=== PATIENT | male | born 1945 | race Caucasian/White ===

== ENCOUNTER → 2018-05-25 | Outpatient (CLI) | payer OTHER | END | disposition home or self-care (01) | LOC: C.LABPBG 09:09 | PROVIDERS: ATTEND Neuromusculoskeletal Medicine & OMM | DX: Z80.42 Family history of malignant neoplasm of prostate (principal) ==

== ENCOUNTER 2023-06-17 10:09 | Inpatient (IN) ==
--- NOTE | 2023-06-17 10:38 | Emergency Department Note ---
Impression & Plan Acute renal failure ED Provider Note HISTORY OF PRESENT ILLNESS: Patient is a 78-year-old male presenting for abnormal labs. Patient reports that he was called by his doctor's office to present to the emergency department for further evaluation due to abnormal lab test results. Patient reports that he had laboratory work-up drawn on 06/15/2023 which showed elevated creatinine le laurence. He was referred to the ER for further evaluation. Patient reports no complaints on arrival. He reports that he has been drinking lots of fluids recently because he has been sweating so much. However, he reports he has not been urinating like he normally does over the last few days. He denies any recent medication changes. Reports he has had loose stool for the last month. Denies any recent fevers. Denies any abdominal pain. Denies any recent travel ROS: as above PHYSICAL EXAM: Constitutional: Patient appears in no acute distress. HENT: Head: Normocephalic and atraumatic. Eyes: EOMI, PERRL Mouth/Throat: Mucous membranes moist. Neck: Trachea midline. Neck supple. Cardiovascular: RRR, No murmurs, rubs or gallops. Intact distal pulses. Pulmonary/Chest: No respiratory distress. Breath sounds clear and equal bilaterally. No wheezes or rales. Abdominal: Abdomen soft, no tenderness, rebound or guarding. Musculoskeletal: No edema, tenderness or deformity noted. Skin: Warm and dry. No rash, erythema, pallor or cyanosis Psychiatric: Appropriate mood and affect for situation. Neurological: Alert and keenly responsive. CN II-XII grossly intact, moving all extremities equally and fully. MDM: - Vitals signs stable - History obtained via patient. Patient presents with abnormal labs. Patient was called by his doctor's office to present to the emergency department today due to elevated creatinine on his labs obtained a few days ago. He reports has not been urinating as much is normal. Reports he is being trying to stay well- hydrated and seems to be sweating a lot. Denies any chest pain or shortness of breath. Denies any recent medication changes. Reports he has been having loose stool described as diarrhea for the last month - Chronic conditions affecting care: HTN; HLD; CKD stage 3; DM-2 - Differential diagnoses include, but are not limited to: Dehydration; obs tructive pathology; electrolyte abnormality - Order placed for continuous cardiac monitoring. At this time, monitor showed rate of 63 bpm with normal sinus rhythm, per my interpretation. - External medical records reviewed. Laboratory work-up obtained on 06/15/2023 was reviewed. His creatinine level was noted to be 3.40, when his baseline is around 1.3-1.4. - EKG reviewed by myself showed normal sinus rhythm. Rate bradycardic at 59 bpm. QTc 417. No acute ischemic changes. Patient does seem to have pauses on his EKG. - Laboratory workup interpreted by myself showed normal WBC; slight hyponatremia (Na 135); low bicarb (14); elevated BUN (79); elevated creatinine (Cr 6.47); hypermagnesemia (Mg 2.5); hyperphosphatemia - UA shows 3+ blood and trace ketones. No evidence of infection - Patient given 1L NS. - CT abdomen/pelvis wo contrast ordered to assess for obstruction as cause of acute renal failure. Could not get CT with contrast given patient's ARF. - VBG does show acidosis. - Order placed for I&O monitoring to ensure patient does not become aneuric. Jackson catheter also ordered. - Discussed case with company dancer, Dr. White, as patient is acidotic and has some electrolyte abnormalities. His potassium is okay at this time he is not having EKG changes. Not complaining needs emergent dialysis at this point. Discussed case with company dancer about potential need for bicarb pushes given the patient's laboratory abnormalities. Dr. White agreed with Jackson catheter to assess for repeat postobstructive diuresis. He also recommended 3 amps of bicarb in sterile water and running that at 80 cc/hr. - Discussion was had with [employer] social worker about patient's case and need for admission. - Hospitalist consulted for admission - Patient admitted to [facility] for further evaluation and management. I provided 33 minutes of critical care time to this patient's care outside of billable procedures. ASSESSMENT AND PLAN: Diagnosis: acute renal failure; hypermagnesemia; acidosis Plan: admit Past Med/Surg History Medical History Chronic kidney disease, stage 3 (moderate) Diabetes mellitus Dyslipidemia Hypertension Sensorineural hearing loss (SNHL) of both ears Surgical History H/O hand surgery (2007) Family History Father Prostate cancer Sister Breast cancer Brother Stroke Dyslipidemia Depression Mother Arthritis Denies family history of Ovarian cancer Myocardial infarction Colorectal cancer Social History Smoking Status: Former smoker Tobacco Type: Cigarettes Age Quit Using Tobacco: 43; packs per day: 1; Second Hand Exposure: No; Do You Dip or Chew Tobacco: No; Hx Alcohol Use: Yes Alcohol type: beer Alcohol Intake Frequency: 4 or More x per/Week Alcohol Intake Frequency Comment: AT LEAST 2 BEERS DAILY Hx Substance Use: No Preferred Language: Pakistani Communication Ability: Effective Visual Impairment: No Limitations Hearing Ability: Use of Hearing Aid Insect Control Aide Required: No Beliefs That Will Affect Care: None marital status: Current Living Situation: Spouse current occupational status: retired How many Children do You have: 3 Feels Safe at Home: Yes Childhood Exposure to Second-Hand Smoke: No Diet: regular Diet Comment: regular caffeine: Yes during the past year weight has: remained stable Dental Care, Regularly: No Physical Activity Frequency: Daily Physical Activity Frequency Comment: walking Seatbelt Use: always Sunscreen Use: No Allergies Allergies Allergy/AdvReac Type Severity Reaction Status Date / Time No Known Allergies Allergy Verified 12/21/22 08:07 Home Meds Home Medications Medication Instructions Recorded Confirmed aluminum hydrox-magnesium carb 160 2 tab PO BID 06/17/23 06/17/23 mg-105 mg chewable tablet (Heartburn Antacid) Previous Rx's Medication Instructions Recorded blood sugar diagnostic (Blood #100 ea 12/21/22 Glucose Test strips) blood-glucose meter (Blood Glucose #1 ea 12/21/22 Monitoring kit) metformin 500 mg tablet,extended 1,000 mg PO BID #360 tabs 12/21/22 release 24 hr lancets 31 gauge #100 ea 03/15/23 atorvastatin 10 mg tablet 10 mg PO HS #90 tabs 03/16/23 glimepiride 4 mg tablet 4 mg PO BID #180 tabs 03/16/23 lisinopril 40 mg tablet 40 mg PO DAILY #90 tabs 03/16/23 Results & Data (ED) Vital Signs Vital Signs - 24 hr 06/17/23 10:13 06/17/23 10:46 06/17/23 12:18 Temperature 36.2 C L Temperature Source Temporal Artery Scan Pulse Rate 62 60 Pulse Rate [Apical] 62 Respiratory Rate 16 20 Respiratory Effort / Characteristics Non-Labored Non-Labored Respiratory Depth Normal Normal Blood Pressure 125/61 Blood Pressure [Right Arm] 125/63 Blood Pressure Mean 82 Blood Pressure Mean [Right Arm] 83 Pulse Oximetry 98 97 Oxygen Delivery Method Room Air Room Air Sepsis Recent Fever Within 48 Hours No Sepsis New/Unexplained Change in Mental Status N/A Sepsis Action Taken by Nursing No Action Required 06/17/23 13:36 Temperature Temperature Source Pulse Rate Pulse Rate [Apical] 55 L Respiratory Rate 16 Respiratory Effort / Characteristics Non-Labored Spontaneous Respiratory Depth Normal Blood Pressure Blood Pressure [Right Arm] 133/67 Blood Pressure Mean Blood Pressure Mean [Right Arm] 89 Pulse Oximetry 97 Oxygen Delivery Method Room Air Sepsis Recent Fever Within 48 Hours Sepsis New/Unexplained Change in Mental Status Sepsis Action Taken by Nursing Laboratory Data 06/17/23 10:50 06/17/23 10:50 Lab Results 06/17/23 06/17/23 06/17/23 Range/Units 10:50 10:50 11:48 WBC 7.25 (4.8-10.8) K/ul RBC 3.99 L (4.70-6.10) M/uL Hgb 12.7 L (14.0-18.0) g/dl Hct 37.4 L (42.0-52.0) % MCV 93.7 (80.0-100.0) fL MCH 31.8 (25.0-34.0) pg MCHC 34.0 (32.0-36.0) g/dL RDW Std Deviation 46.7 H (36.4-46.3) fL RDW Coeff of Alen 13.5 (11.5-14.5) % Plt Count 174 (130-400) K/uL MPV 10.4 (9.4-12.4) fL Immature Gran % (Auto) 0.3 % Neut % (Auto) 71.3 % Lymph % (Auto) 18.6 % [place]chran % (Auto) 7.9 % Eos % (Auto) 0.8 % Baso % (Auto) 1.1 % Neut # (Auto) 5.17 (1.40-6.50) K/uL Lymph # (Auto) 1.35 (1.20-3.40) K/uL [place]ran # (Auto) 0.57 (0.11-0.59) K/uL Eos # (Auto) 0.06 (0.00-0.50) K/uL Baso # (Auto) 0.08 (0.00-0.20) K/uL Immature Gran # (Auto) 0.02 (0.01-0.20) K/uL VBG pH (7.36-7.41) VBG pCO2 (38-50) mmHg VBG pO2 mmHg VBG HCO3 mmol/L VBG O2 Saturation % VBG Base Excess mEq/L Sodium 135 L (136-145) mmol/L Potassium 5.1 (3.5-5.1) mmol/L Chloride 110 H (98-107) mmol/L Carbon Dioxide 14 L (21-32) mmol/L Anion Gap 11 (3-11) BUN 79 H (6-23) mg/dl Creatinine 6.47 H* (0.6-1.4) mg/dl Est Cr Clr Drug Dosing 10.4 ml/min Est GFR ( Amer) 8.7 ml/min Est GFR (Non-Af Amer) 7.5 ml/min BUN/Creatinine Ratio 12.2 (10-20) Glucose 232 H (70-99(Fasting)) mg/dl Calcium 9.6 (8.6-10.3) mg/dl Phosphorus 5.7 H (2.5-4.9) mg/dl Magnesium 2.5 H (1.7-2.4) mg/dl Total Bilirubin 1.2 H (0.2-1.0) mg/dl AST 29 (13-39) U/L ALT 23 (7-52) U/L Alkaline Phosphatase 43 (34-104) U/L Troponin I High Sens 15.7 (0-20) pg/ml Total Protein 7.5 (6.0-8.3) gm/dl Albumin 4.4 (3.4-5.0) gm/dl Globulin 3.1 (2.5-4.0) gm/dl Albumin/Globulin Ratio 1.4 (0.9-2) Urine Color Yellow Urine Appearance Cloudy A (Clear) Urine pH 5.0 (4.5-7.5) Ur Specific [place] 1.018 (1.000-1.030) Urine Protein 1+ H (Negative) Urine Glucose (UA) Negative (Negative) Urine Ketones Trace H (Negative) Urine Blood 3+ H (Negative) Urine Nitrite Negative (Negative) Urine Bilirubin Negative (Negative) Urine Urobilinogen Negative (Negative) Ur Leukocyte Esterase Negative (Negative) Urine WBC (Auto) 1-5 (0-5) /hpf Urine RBC (Auto) 0-4 (0-4) /hpf U Hyaline Cast (Auto) 1-5 (0-5) /lpf U Epithel Cells (Auto) 20-30 H (0-5) /lpf Urine Bacteria (Auto) Negative (Negative) Calcium Oxalate Crystal Present A (None Prsent) Urine Yeast Not Reportable 06/17/23 Range/Units 13:14 WBC (4.8-10.8) K/ul RBC (4.70-6.10) M/uL Hgb (14.0-18.0) g/dl Hct (42.0-52.0) % MCV (80.0-100.0) fL MCH (25.0-34.0) pg MCHC (32.0-36.0) g/dL RDW Std Deviation (36.4-46.3) fL RDW Coeff of Alen (11.5-14.5) % Plt Count (130-400) K/uL MPV (9.4-12.4) fL Immature Gran % (Auto) % Neut % (Auto) % Lymph % (Auto) % [place]ran % (Auto) % Eos % (Auto) % Baso % (Auto) % Neut # (Auto) (1.40-6.50) K/uL Lymph # (Auto) (1.20-3.40) K/uL [place]ran # (Auto) (0.11-0.59) K/uL Eos # (Auto) (0.00-0.50) K/uL Baso # (Auto) (0.00-0.20) K/uL Immature Gran # (Auto) (0.01-0.20) K/uL VBG pH 7.26 L (7.36-7.41) VBG pCO2 36 L (38-50) mmHg VBG pO2 41 mmHg VBG HCO3 16 mmol/L VBG O2 Saturation 64.6 % VBG Base Excess -10.0 mEq/L Sodium (136-145) mmol/L Potassium (3.5-5.1) mmol/L Chloride (98-107) mmol/L Carbon Dioxide (21-32) mmol/L Anion Gap (3-11) BUN (6-23) mg/dl Creatinine (0.6-1.4) mg/dl Est Cr Clr Drug Dosing ml/min Est GFR ( Amer) ml/min Est GFR (Non-Af Amer) ml/min BUN/Creatinine Ratio (10-20) Glucose (70-99(Fasting)) mg/dl Calcium (8.6-10.3) mg/dl Phosphorus (2.5-4.9) mg/dl Magnesium (1.7-2.4) mg/dl Total Bilirubin (0.2-1.0) mg/dl AST (13-39) U/L ALT (7-52) U/L Alkaline Phosphatase (34-104) U/L Troponin I High Sens (0-20) pg/ml Total Protein (6.0-8.3) gm/dl Albumin (3.4-5.0) gm/dl Globulin (2.5-4.0) gm/dl Albumin/Globulin Ratio (0.9-2) Urine Color Urine Appearance (Clear) Urine pH (4.5-7.5) Ur Specific [place] (1.000-1.030) Urine Protein (Negative) Urine Glucose (UA) (Negative) Urine Ketones (Negative) Urine Blood (Negative) Urine Nitrite (Negative) Urine Bilirubin (Negative) Urine Urobilinogen (Negative) Ur Leukocyte Esterase (Negative) Urine WBC (Auto) (0-5) /hpf Urine RBC (Auto) (0-4) /hpf U Hyaline Cast (Auto) (0-5) /lpf U Epithel Cells (Auto) (0-5) /lpf Urine Bacteria (Auto) (Negative) Calcium Oxalate Crystal (None Prsent) Urine Yeast Administered Medications Discontinued Medications Sodium Chloride (Nss) 1,000 mls @ 999 mls/hr IV .[id number] ONE Stop: 06/17/23 13:38 Last Admin: 06/17/23 12:43 Dose: 999 mls/hr Documented By: [facility] Imaging Data Radiologist's Impression: Abdomen/Pelvis CT 06/17/23 12:[address] WITHOUT CONTRAST CT DOSE: 1399.33 mGy.cm HISTORY: Acute renal failure acute renal failure TECHNIQUE: Multiaxial CT images of the abdomen and pelvis were performed without contrast. A dose lowering technique was utilized adhering to the principles of ALARA. COMPARISON STUDY: None. FINDINGS: Cardiomegaly with coronary arterial calcifications. Mild bibasilar groundglass densities favor atelectasis. No pneumatosis or pneumoperitoneum. Calcified granulomata throughout the spleen. Unremarkable pancreas, gallbladder and adrenal glands. Hepatic steatosis. Nonspecific bilateral perinephric stranding. No urolith or hydronephrosis. Prostatomegaly. Urine bladder wall thickening with partial distention. Atherosclerosis of the aorta without aneurysm. No lymphadenopathy. No bowel obstruction or bowel wall thickening. There is no ascites or mesenteric inflammation. Normal appendix. Unremarkable soft tissues. No acute fracture. IMPRESSION: 1. No renal calculi or hydronephrosis. 2. Prostatomegaly with findings suggestive of chronic outlet obstruction. 3. No bowel obstruction or bowel wall thickening. 4. Hepatic steatosis. ACT 112: Negative or not required by law. The above report was generated using voice recognition software. It may contain grammatical, syntax or spelling errors. Electronically signed by: Sam Martines M.D. 06/17/2023 1:40 PM Discharge Plan Visit Data Chief Complaint: Abnormal Labs/Diagnostic Testing Stated Complaint: URINARY ISSUES, SENT BY DOCTOR FOR KIDNEY ISSUES ED Provider: Paula Cardoso Discharge Problem: Acute renal failure Forms Stand Alone Forms: [facility] [employer] Prescriptions Prescriptions: No Action (DME) lancets 31 gauge misc See Rx Instructions .Route Qty: 100 1RF Rx Instructions: As directed, check BS daily atorvastatin 10 mg tablet 10 mg PO HS Qty: 90 1RF lisinopril 40 mg tablet 40 mg PO DAILY Qty: 90 1RF glimepiride 4 mg tablet 4 mg PO BID Qty: 180 1RF (DME) Blood Glucose Test Strip See Rx Instructions .ROUTE .MEDSUPPLY Qty: 100 1RF Rx Instructions: As directed. Testing BS daily. Dx: E11.9 (DME) blood-glucose meter [Blood Glucose Monitoring] Kit See Rx Instructions .ROUTE .MEDSUPPLY Qty: 1 0RF Rx Instructions: As directed Testing BS daily. Dx: E11.9 metformin 500 mg tablet extended release 24 hr 1,000 mg PO BID Qty: 360 1RF Heartburn Antacid 160-105 mg Tablet,Chewable 2 tab PO BID Referrals Referrals: Mitzi Hernández DO [Primary Care Provider] -
[2023-06-17 11:14] LABS: Basophils # (auto) 0.08 K/uL (0.00-0.20); Basophils % (auto) 1.1 %; Eosinophils # (auto) 0.06 K/uL (0.00-0.50); Eosinophils % (auto) 0.8 %; Hematocrit (blood only) 37.4 % (42.0-52.0); Hemoglobin 12.7 g/dl (14.0-18.0); Immature Granulocytes # (auto) 0.02 K/uL (0.01-0.20); Immature Granulocytes % (auto) 0.3 %; Lymphocytes # (auto) 1.35 K/uL (1.20-3.40); Lymphocytes % (auto) 18.6 %; Mean Corpuscular Hemoglobin 31.8 pg (25.0-34.0); Mean Corpuscular Volume 93.7 fL (80.0-100.0); Mean Platelet Volume 10.4 fL (9.4-12.4); Monocytes # (auto) 0.57 K/uL (0.11-0.59); Monocytes % (auto) 7.9 %; Neutrophils # (auto) 5.17 K/uL (1.40-6.50); Neutrophils % (auto) 71.3 %; Platelet Count 174 K/uL (130-400); RDW Coefficient of Variation 13.5 % (11.5-14.5); RDW Standard Deviation 46.7 fL (36.4-46.3); Red Blood Count 3.99 M/uL (4.70-6.10); White Blood Count 7.25 K/ul (4.8-10.8)
[2023-06-17 11:41] LABS: Troponin I High Sensitivity 15.7 pg/ml (0-20)
[2023-06-17 12:07] LABS: Appearance Urine Cloudy (Clear); Bacteria Urine Automated Negative (Negative); Bilirubin Urine Negative (Negative); Blood Urine 3+ (Negative); Color Urine Yellow; Epithelial Cell Urine Auto 20-30 /lpf (0-5); Glucose Urine UA Negative (Negative); Ketones Urine Trace (Negative); Leukocyte Esterase Urine Negative (Negative); Nitrite Urine Negative (Negative); Protein Urine 1+ (Negative); RBC Urine Automated 0-4 /hpf (0-4); Specific Gravity Urine 1.018 (1.000-1.030); Urobilinogen Urine Negative (Negative)
[2023-06-17 12:17] LABS: Calcium Oxalate Crystals Urine Present (None Prsent)
[2023-06-17 12:23] LABS: Albumin Level 4.4 gm/dl (3.4-5.0); Bilirubin,Total 1.2 mg/dl (0.2-1.0); Calcium 9.6 mg/dl (8.6-10.3); Magnesium 2.5 mg/dl (1.7-2.4); Potassium 5.1 mmol/L (3.5-5.1)
[2023-06-17 12:36] LABS: Albumin Globulin Ratio 1.4 (0.9-2); BUN Creatinine Ratio 12.2 (10-20); Creatinine Clr Calc Pharmacy 10.4 ml/min; Est GFR (African American) 8.7 ml/min; Est GFR (Non-African American) 7.5 ml/min; Globulin 3.1 gm/dl (2.5-4.0); Total Protein 7.5 gm/dl (6.0-8.3)
[2023-06-17] MEDS ORDERED: SODIUM CHLORIDE 0.9% 1,000 ML IV ONE (12:38)
[2023-06-17 13:18] LABS: Phosphorus 5.7 mg/dl (2.5-4.9)
[2023-06-17 13:22] LABS: HCO3 VBG 16 mmol/L; Oxygen Saturation VBG 64.6 %; PCO2 VBG 36 mmHg (38-50); PO2 VBG 41 mmHg; pH VBG 7.26 (7.36-7.41)
--- NOTE | 2023-06-17 13:42 | CT Scan Report ---
ABDOMEN AND PELVIS CT WITHOUT CONTRAST CT DOSE: 1399.33 mGy.cm HISTORY: Acute renal failure acute renal failure TECHNIQUE: Multiaxial CT images of the abdomen and pelvis were performed without contrast. A dose lo wering technique was utilized adhering to the principles of ALARA. COMPARISON STUDY: None. FINDINGS: Cardiomegaly with coronary arterial calcifications. Mild bibasilar groundglass densities fa vor atelectasis. No pneumatosis or pneumoperitoneum. Calcified granulomata throughout the spleen. Unr emarkable pancreas, gallbladder and adrenal glands. Hepatic steatosis. Nonspecific bilateral perineph [place] stranding. No urolith or hydronephrosis. Prostatomegaly. Urine bladder wall thickening with parti al distention. Atherosclerosis of the aorta without aneurysm. No lymphadenopathy. No bowel obstruction or bowel wall thickening. There is no ascites or mesenteric inflammation. Normal appendix. Unremarkable soft tissues. No acute fracture. IMPRESSION: 1. No renal calculi or hydronephrosis. 2. Prostatomegaly with findings suggestive of chronic outlet obstruction. 3. No bowel obstruction or bowel wall thickening. 4. Hepatic steatosis. ACT 112: Negative or not required by law. The above report was generated using voice recognition software. It may contain grammatical, syntax o r spelling errors. Electronically signed by: Sam Martines M.D. 06/17/2023 1:40 PM
--- NOTE | 2023-06-17 14:09 | History & Physical Report ---
Date of Service June 17, 2023 Assessment & Plan (1) Acute renal failure: Plan: -Admit to the PCU on tele -Currently stable -Cr today is 6.47, baseline is typically 1.3-1.4 -Patient has multiple risk factors including, untreated BPH which is likely causing some urine retention, HTN, DMII, and alcohol abuse -Patient has continued to take his Lisinopril, this has likely contributed to additional damage with his decreased kidney function -Will add on CK level as he has 3+ blood in his urine but no RBC's -Chloride, mag, and phos are mildly elevated, otherwise electrolytes are stable -CT was negative for hydronephrosis and stones, will place poe cath on admission for close I's & O's monitoring -Nephrology consult placed, will follow-up with recommendations, do not think he will need dialysis today -Avoid nephrotoxic agents -Will repeat BMP, mag, phos and VBG at 5 pm -Monitor daily renal function -SQ heparin for DVT PPX -DMII, low potassium diet for now -AM CBC, BMP, mag, Phos, and VBG (2) Metabolic acidosis: Plan: -VBG pH of 7.26 with pCO2 of 36 and pO2 of 41 -AG WNL, chloride elevated at 110 -Likely due to his renal failure and elevated chloride level -Unfortunately he received 1L NSS in the ED prior to admission -Will give 1 amp of sodium bicarb STAT, then continue on 150 meq Sodium bicarb in sterile water at 80 ml/hr -Will repeat labs this evening to ensure he is heading in the right direction (3) Diabetes mellitus: Plan: -Glucose elevated at 232 -Hold metformin and glimepiride for now, did have am doses -Will monitor BSG q6h today until BSG is under control, then can switch to ACHS -CF of 50 q6h until stable -Will hold basal insulin for now with his renal failure as his oral antihyperglycemics will likely take longer to clear, want to avoid hypoglycemia -DMII diet with low potassium for now -Adjust regimen as needed (4) Hypermagnesemia: Plan: -Elevated at 2.5 -Likely due to renal failure -Continue current treatments, will follow repeat labs -Continue to monitor on tele (5) Hyperphosphatemia: Plan: -Elevated at 1.2 -Due to his renal failure -Follow up on repeat labs today and daily (6) Dyslipidemia: Plan: -Hold statin until CK level results (7) Hypertension: Plan: -Stable -Hold lisinopril with ARF -Can monitor off antihypertensives for now Plan The patient was discussed with Dr. Marcos at the time of the admission History of Present Illness Chief Complaint: Abnormal outpatient labs Primary Care Provider: Mitzi Hernández DO Makayla is a 78 year old male with a PMH significant for DMII, HTN, Dyslipidemia, and stage 3 CKD (baseline cr of 1.3-1.4) who presented to the [facility] ED on 06/17 due to abnormal outpatient labs. He was noted to be bradycardic at 55 but otherwise stable. Labs were significant for a VBG pH of 7.26, pCO2 of 36, pO2 of 41, Cr of 6.47, BUN of 79, bicarb of 14, AG WNL, chloride of 110, phos of 5.7 glucose of 232, mag of 2.5, total bili of 1.2, and UA with cloudy appearance, 1+ protein, trace ketones, 3+ blood, and calcium oxalate crystals. CT of the abd/pelvis wo con shows Prostatomegaly with findings suggestive of chronic outlet obstruction but no renal calculi or hydronephrosis. Prior to admission the patient was given 1L NSS prior to admission. At the time of the exam the patient was sitting in bed in no acute distress with his sitting bedside. He states that he had been in his normal state of health when he went for his yearly physical exam on Tuesday. He had routine labs drawn which revealed new renal failure and he was advised to come to the ED. When asked, he states that he recently cut back on his alcohol consumption. He had been drinking approximately 1-2 30 packs of beer weekly. Over the past 2 weeks he has decreased his consumption to 2-3 beers, 3-4 days a week. He did drink every day over the holiday weekend. He denies consistent NSAID use and denies recent dysuria, hematuria, abd pain, and back pain. When asked, he states that he will have to wake up frequently overnight because he has to urinate. He does feel as though he retains urine after urinating. He denies recent fever, chills, chest pain, SOB, nausea, vomiting, diarrhea, melena, LE swelling, and recent trauma. If needed, he would want dialysis to stabilize him during this admission. He is a full code and would want his to make medical decisions for him if he cannot make them himself. Please refer to Dr. Marcos's attestation for any changes to the treatment plan Allergies Allergy/AdvReac Type Severity Reaction Status Date / Time No Known Allergies Allergy Verified 12/21/22 08:07 Home Medications Medication Instructions Recorded Confirmed Type blood sugar diagnostic (Blood #100 ea 12/21/22 12/21/22 Rx Glucose Test strips) blood-glucose meter (Blood Glucose #1 ea 12/21/22 12/21/22 Rx Monitoring kit) metformin 500 mg tablet,extended 1,000 mg PO BID #360 tabs 12/21/22 06/17/23 Rx release 24 hr lancets 31 gauge #100 ea 03/15/23 Rx atorvastatin 10 mg tablet 10 mg PO HS #90 tabs 03/16/23 06/17/23 Rx glimepiride 4 mg tablet 4 mg PO BID #180 tabs 03/16/23 06/17/23 Rx lisinopril 40 mg tablet 40 mg PO DAILY #90 tabs 03/16/23 06/17/23 Rx aluminum hydrox-magnesium carb 160 2 tab PO BID 06/17/23 06/17/23 History mg-105 mg chewable tablet (Heartburn Antacid) Past Med/Surg History Medical History (Updated 06/18/23 @ 12:04 by Reshma Partida MD) Bladder outlet obstruction Chronic kidney disease, stage 3 (moderate) Chronic kidney disease, stage 3a Diabetes mellitus Dyslipidemia Hypertension Sensorineural hearing loss (SNHL) of both ears Surgical History H/O hand surgery (2007) R hand contracture deformity Family History Father Prostate cancer Sister Breast cancer Brother Stroke Dyslipidemia Depression Mother Arthritis Denies family history of Ovarian cancer Myocardial infarction Colorectal cancer Social History Smoking Status: Former smoker Tobacco Type: Cigarettes Age Quit Using Tobacco: 43; packs per day: 1; Second Hand Exposure: No; Do You Dip or Chew Tobacco: No; Hx Alcohol Use: Yes Alcohol type: beer Alcohol Intake Frequency: 4 or More x per/Week Alcohol Intake Frequency Comment: AT LEAST 2 BEERS DAILY Hx Substance Use: No Preferred Language: Moldovan Communication Ability: Effective Visual Impairment: No Limitations Hearing Ability: Use of Hearing Aid Requirements Analyst Required: No Beliefs That Will Affect Care: None marital status: Current Living Situation: Spouse current occupational status: retired How many Children do You have: 3 Feels Safe at Home: Yes Childhood Exposure to Second-Hand Smoke: No Diet: regular Diet Comment: regular caffeine: Yes during the past year weight has: remained stable Dental Care, Regularly: No Physical Activity Frequency: Daily Physical Activity Frequency Comment: walking Seatbelt Use: always Sunscreen Use: No Assistive Devices: Denture - Upper, Denture - Lower and Glasses Physical Exam Physical Exam: Physical Exam: General: In no acute distress, stated age, well-nourished, good hygiene HEENT: Normocephalic, atraumatic, no scleral icterus, pupils around round, symmetrical, and reactive to light, moist mucus membranes, trachea midline, no t hyromegaly Chest/Pulm: No respiratory distress, symmetrical chest expansion, clear breath sounds throughout Cardiac: RRR, systolic murmur noted Abdomen: Negative for ascites and bruising, normoactive bowel sounds, soft, non-tender to palpation throughout Musculoskeletal: Symmetrical and without signs of acute trauma, upper and lower extremities with full ROM, no atrophy, spasticity, or flaccidity Extremities: Radial, dorsalis pedis, and posterior tibial pulses are intact and symmetrical, no edema noted in the BL LE's Skin: Warm, dry, no rashes , lesions, or scars noted Neuro: Alert and oriented to person, place, month, year, and president, no focal defects, no tremors noted Psych: No acute distress, calm and cooperative during the exam Results & Data Results & Data Vital Signs (Past 12 Hours) Vital Signs Temp Pulse Pulse Resp BP BP Pulse Ox 06/17/23 13:36 55 L 16 133/67 97 06/17/23 12:18 60 06/17/23 10:46 62 20 125/63 97 06/17/23 10:13 36.2 C L 62 16 125/61 98 O2 Del Method 06/17/23 13:36 Room Air 06/17/23 12:18 06/17/23 10:46 Room Air 06/17/23 10:13 Room Air Laboratory Results Abnormal lab results 06/17/23 06/17/23 06/17/23 Range/Units 10:50 10:50 11:48 RBC 3.99 L (4.70-6.10) M/uL Hgb 12.7 L (14.0-18.0) g/dl Hct 37.4 L (42.0-52.0) % RDW Std Deviation 46.7 H (36.4-46.3) fL VBG pH (7.36-7.41) VBG pCO2 (38-50) mmHg Sodium 135 L (136-145) mmol/L Chloride 110 H (98-107) mmol/L Carbon Dioxide 14 L (21-32) mmol/L BUN 79 H (6-23) mg/dl Creatinine 6.47 H* (0.6-1.4) mg/dl Glucose 232 H (70-99(Fasting)) mg/dl Phosphorus 5.7 H (2.5-4.9) mg/dl Magnesium 2.5 H (1.7-2.4) mg/dl Total Bilirubin 1.2 H (0.2-1.0) mg/dl Urine Appearance Cloudy A (Clear) Urine Protein 1+ H (Negative) Urine Ketones Trace H (Negative) Urine Blood 3+ H (Negative) U Epithel Cells (Auto) 20-30 H (0-5) /lpf Calcium Oxalate Crystal Present A (None Prsent) 06/17/23 Range/Units 13:14 RBC (4.70-6.10) M/uL Hgb (14.0-18.0) g/dl Hct (42.0-52.0) % RDW Std Deviation (36.4-46.3) fL VBG pH 7.26 L (7.36-7.41) VBG pCO2 36 L (38-50) mmHg Sodium (136-145) mmol/L Chloride (98-107) mmol/L Carbon Dioxide (21-32) mmol/L BUN (6-23) mg/dl Creatinine (0.6-1.4) mg/dl Glucose (70-99(Fasting)) mg/dl Phosphorus (2.5-4.9) mg/dl Magnesium (1.7-2.4) mg/dl Total Bilirubin (0.2-1.0) mg/dl Urine Appearance (Clear) Urine Protein (Negative) Urine Ketones (Negative) Urine Blood (Negative) U Epithel Cells (Auto) (0-5) /lpf Calcium Oxalate Crystal (None Prsent) Diagnostic Findings Abdomen/Pelvis CT 06/17/23 12:[address] WITHOUT CONTRAST CT DOSE: 1399.33 mGy.cm HISTORY: Acute renal failure acute renal failure TECHNIQUE: Multiaxial CT images of the abdomen and pelvis were performed without contrast. A dose lowering technique was utilized adhering to the principles of ALARA. COMPARISON STUDY: None. FINDINGS: Cardiomegaly with coronary arterial calcifications. Mild bibasilar groundglass densities favor atelectasis. No pneumatosis or pneumoperitoneum. Calcified granulomata throughout the spleen. Unremarkable pancreas, gallbladder and adrenal glands. Hepatic steatosis. Nonspecific bilateral perinephric stranding. No urolith or hydronephrosis. Prostatomegaly. Urine bladder wall thickening with partial distention. Atherosclerosis of the aorta without aneurysm. No lymphadenopathy. No bowel obstruction or bowel wall thickening. There is no ascites or mesenteric inflammation. Normal appendix. Unremarkable soft tissues. No acute fracture. IMPRESSION: 1. No renal calculi or hydronephrosis. 2. Prostatomegaly with findings suggestive of chronic outlet obstruction. 3. No bowel obstruction or bowel wall thickening. 4. Hepatic steatosis. ACT 112: Negative or not required by law. The above report was generated using voice recognition software. It may contain grammatical, syntax or spelling errors. Electronically signed by: Sam Martines M.D. 06/17/2023 1:40 PM ECG Additional Comments: Sinus bradycardia with Premature atrial complexes Otherwise normal ECG No previous ECGs available Code Status & VTE Plan Code Status Full code VTE Prophylaxis Plan VTE Prophylaxis will be ordered: Yes Supervising Physician Co-Signing Physician Notes I personally saw and examined the patient. I verified all brand points and agree with Rafael Sánchez PA-C with the following exceptions and/or additions: 78 year old male presents to the ER with due to abnormal outpatient labs showing SARI. He reports 3-4 beers daily but none for the last 48 hours. Mild leg muscle aches. Feels he got dehydrated over the last week. No dysuria. O/E A&Ox3, no acute distress, HS RRR, with systolic murmur loudest LUSB, trace pedal edema, moist mucus membranes, Chest CTAB, Abdo SNT, no CVA tenderness A/P SARI - suspect multifactorial with dehydration, chronic outlet obstruction, diabetes, mild rhabdo, HTN, lisinopril use. Stop lisinopril. No hyperkalemia but non anion gap metabolic acidosis present. Sodium bicarb 50 meq IV now then 150meq in water 80ml/hr following this. Poe catheter inserted for accurate I&Os and to relieve any outlet obstruction. Start tamsulosin. UA + Urine protein/Cr ratio. Systolic ejection murmur - TTE Alcohol use disorder - monitor for withdrawal but none prior and > 48 hours since last alcohol therefore low suspicion this will occur Otherwise as above PG Care Time/CCT Total # of Minutes Spent Total Time Spent with Patient: Total time spent is greater than 50% in coordination of care (as documented) at patient's floor/unit and/or counseling patient: Coding [place] [address] INT INP/OBS CARE 3/75MIN Patient Type Established Medical Decision Making High Complexity Diagnoses Acute renal failure N17.9 Metabolic acidosis E87.20 Diabetes mellitus E11.9 Hypermagnesemia E83.41 Hyperphosphatemia E83.39 Dyslipidemia E78.5 Hypertension I10
--- NOTE | 2023-06-17 14:28 | Nephrology Consultation ---
Date of Consultation June 17, 2023 Assessment & Plan (1) Acute renal failure: * SARI/CKD likely post obstructive related to prostatomegally and QUEVEDO * Agree w/ Jackson catheter insertion, monitor I&O * Start NaHCO3 gtt (150 mEq NaHCO3 in 1L sterile water at 80 cc/hr) to correct metabolic acidosis * Monitor PRP, urine sediment * Volume status and electrolyte balance are acceptable. No acute indication for HD at this time * Hold Lisinopril, Metformin, Glimepiride (2) Chronic kidney disease, stage 3 (moderate): * No prior Nephrology evaluation * Baseline Cr 1.3-1.4 w/ EGFR 45 cc/min. Renal impairment likely due to microvascular disease (3) Hypertension: * BP is currently acceptable * Hold ACEi therapy until renal function recovers History of Present Illness Reason for Consultation: SARI/CKD History of Present Illness Mr. Andrews is a 78 year old white male who is seen at the request of the [facility] Hospitalist Service for evaluation of SARI. Information for the HPI is obtained from direct patient interview and review of the EMR. HPI is summarized as follows: Mr. Andrews has a known h/o AODM, HTN, hypercholesterolemia and sensorineural hearing loss. He has CKD stage G3 (moderate impairment) w/ baseline Cr 1.3-1.4 and EGFR 45 cc/min. His blood pressure has been well controlled w/ Lisinopril therapy. Mr. Andrews recently completed blood work for his PCP. Laboratory results revealed Cr 3.4. He was referred to the [facility] EMD where testing today revealed Cr 6.47. Urinalysis revealed 1+ protein, no blood on a concentrated sample. Noncontrast CT was negative for hydronephrosis or kidney stone but did reveal perinephric stranding and prostatomegally suggestive of chronic QUEVEDO. Mr. Andrews denies the regular use of NSAIDS or herbal supplements. He has had no N/V/D, urinary hesitancy, gross hematuria or foamy urine. He denies any FHx of CKD/ESKD. At the time of my evaluation, balance staff inspector placed Jackson catheter which immediately drained 400 cc clear yellow urine Allergies Allergy/AdvReac Type Severity Reaction Status Date / Time No Known Allergies Allergy Verified 12/21/22 08:07 Home Medications Medication Instructions Recorded Confirmed Type blood sugar diagnostic (Blood #100 ea 12/21/22 12/21/22 Rx Glucose Test strips) blood-glucose meter (Blood Glucose #1 ea 12/21/22 12/21/22 Rx Monitoring kit) metformin 500 mg tablet,extended 1,000 mg PO BID #360 tabs 12/21/22 06/17/23 Rx release 24 hr lancets 31 gauge #100 ea 03/15/23 Rx atorvastatin 10 mg tablet 10 mg PO HS #90 tabs 03/16/23 06/17/23 Rx glimepiride 4 mg tablet 4 mg PO BID #180 tabs 03/16/23 06/17/23 Rx lisinopril 40 mg tablet 40 mg PO DAILY #90 tabs 03/16/23 06/17/23 Rx aluminum hydrox-magnesium carb 160 2 tab PO BID 06/17/23 06/17/23 History mg-105 mg chewable tablet (Heartburn Antacid) Patient History Medical History Chronic kidney disease, stage 3 (moderate) Diabetes mellitus Dyslipidemia Hypertension Sensorineural hearing loss (SNHL) of both ears Surgical History H/O hand surgery (2007) R hand contracture deformity Family History Father Prostate cancer Sister Breast cancer Brother Stroke Dyslipidemia Depression Mother Arthritis Denies family history of Ovarian cancer Myocardial infarction Colorectal cancer Social History Smoking Status: Former smoker Tobacco Type: Cigarettes Age Quit Using Tobacco: 43; packs per day: 1; Second Hand Exposure: No; Do You Dip or Chew Tobacco: No; Hx Alcohol Use: Yes Alcohol type: beer Alcohol Intake Frequency: 4 or More x per/Week Alcohol Intake Frequency Comment: AT LEAST 2 BEERS DAILY Hx Substance Use: No Preferred Language: Wolof Communication Ability: Effective Visual Impairment: No Limitations Hearing Ability: Use of Hearing Aid Air Crew Supervisor Required: No Beliefs That Will Affect Care: None marital status: Current Living Situation: Spouse current occupational status: retired How many Children do You have: 3 Feels Safe at Home: Yes Childhood Exposure to Second-Hand Smoke: No Diet: regular Diet Comment: regular caffeine: Yes during the past year weight has: remained stable Dental Care, Regularly: No Physical Activity Frequency: Daily Physical Activity Frequency Comment: walking Seatbelt Use: always Sunscreen Use: No Review of Systems Constitutional: no fever Eyes: no worsening vision Ear, Nose, Mouth, Throat: no problem reported Respiratory: no cough and no dyspnea Cardiovascular: no chest pain and no syncope Gastrointestinal: no abdominal pain, no nausea, no vomiting and no diarrhea/loose stools Genitourinary: no dysuria, no urinary hesitancy or no hematuria (denies foamy urine) Integumentary: no rash Physical Exam Constitutional: well developed and well nourished; not in distress Eyes: PERRL, conjunctivae normal, anicteric sclerae ENMT: external ear and nose normal, oropharynx normal Neck: trachea midline, no thyromegaly Respiratory: normal respiratory effort, lungs clear to auscultation Cardiovascular: Rate/Rhythm: regular rate and regular rhythm Gastrointestinal (Abdomen): normal bowel sounds, soft, nontender, no hepatosplenomegaly Skin: no rashes, warm and dry Neurologic: Speech / Cognition: normal speech and normal cognition hard of hearing Results & Data Vital Signs (Past 12 Hours) Vital Signs Temp Pulse Pulse Resp BP BP Pulse Ox 06/17/23 13:36 55 L 16 133/67 97 06/17/23 12:18 60 06/17/23 10:46 62 20 125/63 97 06/17/23 10:13 36.2 C L 62 16 125/61 98 O2 Del Method 06/17/23 13:36 Room Air 06/17/23 12:18 06/17/23 10:46 Room Air 06/17/23 10:13 Room Air Laboratory Results Laboratory Results WBC 7.25 K/ul (4.8-10.8) 06/17/23 10:50 RBC 3.99 M/uL (4.70-6.10) L 06/17/23 10:50 Hgb 12.7 g/dl (14.0-18.0) L 06/17/23 10:50 Hct 37.4 % (42.0-52.0) L 06/17/23 10:50 MCV 93.7 fL (80.0-100.0) 06/17/23 10:50 MCH 31.8 pg (25.0-34.0) 06/17/23 10:50 MCHC 34.0 g/dL (32.0-36.0) 06/17/23 10:50 RDW Std Deviation 46.7 fL (36.4-46.3) H 06/17/23 10:50 RDW Coeff of Alen 13.5 % (11.5-14.5) 06/17/23 10:50 Plt Count 174 K/uL (130-400) 06/17/23 10:50 MPV 10.4 fL (9.4-12.4) 06/17/23 10:50 Immature Gran % (Auto) 0.3 % 06/17/23 10:50 Neut % (Auto) 71.3 % 06/17/23 10:50 Lymph % (Auto) 18.6 % 06/17/23 10:50 [place] % (Auto) 7.9 % 06/17/23 10:50 Eos % (Auto) 0.8 % 06/17/23 10:50 Baso % (Auto) 1.1 % 06/17/23 10:50 Neut # (Auto) 5.17 K/uL (1.40-6.50) 06/17/23 10:50 Lymph # (Auto) 1.35 K/uL (1.20-3.40) 06/17/23 10:50 [place] # (Auto) 0.57 K/uL (0.11-0.59) 06/17/23 10:50 Eos # (Auto) 0.06 K/uL (0.00-0.50) 06/17/23 10:50 Baso # (Auto) 0.08 K/uL (0.00-0.20) 06/17/23 10:50 Immature Gran # (Auto) 0.02 K/uL (0.01-0.20) 06/17/23 10:50 VBG pH 7.26 (7.36-7.41) L 06/17/23 13:14 VBG pCO2 36 mmHg (38-50) L 06/17/23 13:14 VBG pO2 41 mmHg 06/17/23 13:14 VBG HCO3 16 mmol/L 06/17/23 13:14 VBG O2 Saturation 64.6 % 06/17/23 13:14 VBG Base Excess -10.0 mEq/L 06/17/23 13:14 Sodium 135 mmol/L (136-145) L 06/17/23 10:50 Potassium 5.1 mmol/L (3.5-5.1) 06/17/23 10:50 Chloride 110 mmol/L (98-107) H 06/17/23 10:50 Carbon Dioxide 14 mmol/L (21-32) L 06/17/23 10:50 Anion Gap 11 (3-11) 06/17/23 10:50 BUN 79 mg/dl (6-23) H 06/17/23 10:50 Creatinine 6.47 mg/dl (0.6-1.4) H* 06/17/23 10:50 Est Cr Clr Drug Dosing 10.4 ml/min 06/17/23 10:50 Est GFR ( Amer) 8.7 ml/min 06/17/23 10:50 Est GFR (Non-Af Amer) 7.5 ml/min 06/17/23 10:50 BUN/Creatinine Ratio 12.2 (10-20) 06/17/23 10:50 Glucose 232 mg/dl (70-99(Fasting)) H 06/17/23 10:50 Calcium 9.6 mg/dl (8.6-10.3) 06/17/23 10:50 Phosphorus 5.7 mg/dl (2.5-4.9) H 06/17/23 10:50 Magnesium 2.5 mg/dl (1.7-2.4) H 06/17/23 10:50 Total Bilirubin 1.2 mg/dl (0.2-1.0) H 06/17/23 10:50 AST 29 U/L (13-39) 06/17/23 10:50 ALT 23 U/L (7-52) 06/17/23 10:50 Alkaline Phosphatase 43 U/L (34-104) 06/17/23 10:50 Troponin I High Sens 15.7 pg/ml (0-20) 06/17/23 10:50 Total Protein 7.5 gm/dl (6.0-8.3) 06/17/23 10:50 Albumin 4.4 gm/dl (3.4-5.0) 06/17/23 10:50 Globulin 3.1 gm/dl (2.5-4.0) 06/17/23 10:50 Albumin/Globulin Ratio 1.4 (0.9-2) 06/17/23 10:50 Urine Color Yellow 06/17/23 11:48 Urine Appearance Cloudy (Clear) A 06/17/23 11:48 Urine pH 5.0 (4.5-7.5) 06/17/23 11:48 Ur Specific [place] 1.018 (1.000-1.030) 06/17/23 11:48 Urine Protein 1+ (Negative) H 06/17/23 11:48 Urine Glucose (UA) Negative (Negative) 06/17/23 11:48 Urine Ketones Trace (Negative) H 06/17/23 11:48 Urine Blood 3+ (Negative) H 06/17/23 11:48 Urine Nitrite Negative (Negative) 06/17/23 11:48 Urine Bilirubin Negative (Negative) 06/17/23 11:48 Urine Urobilinogen Negative (Negative) 06/17/23 11:48 Ur Leukocyte Esterase Negative (Negative) 06/17/23 11:48 Urine WBC (Auto) 1-5 /hpf (0-5) 06/17/23 11:48 Urine RBC (Auto) 0-4 /hpf (0-4) 06/17/23 11:48 U Hyaline Cast (Auto) 1-5 /lpf (0-5) 06/17/23 11:48 U Epithel Cells (Auto) 20-30 /lpf (0-5) H 06/17/23 11:48 Urine Bacteria (Auto) Negative (Negative) 06/17/23 11:48 Calcium Oxalate Crystal Present (None Prsent) A 06/17/23 11:48 Urine Yeast Not Reportable 06/17/23 11:48 Impressions Abdomen/Pelvis CT 06/17/23 12:[address] WITHOUT CONTRAST CT DOSE: 1399.33 mGy.cm HISTORY: Acute renal failure acute renal failure TECHNIQUE: Multiaxial CT images of the abdomen and pelvis were performed without contrast. A dose lowering technique was utilized adhering to the principles of ALARA. COMPARISON STUDY: None. FINDINGS: Cardiomegaly with coronary arterial calcifications. Mild bibasilar groundglass densities favor atelectasis. No pneumatosis or pneumoperitoneum. Calcified granulomata throughout the spleen. Unremarkable pancreas, gallbladder and adrenal glands. Hepatic steatosis. Nonspecific bilateral perinephric stranding. No urolith or hydronephrosis. Prostatomegaly. Urine bladder wall thickening with partial distention. Atherosclerosis of the aorta without aneurysm. No lymphadenopathy. No bowel obstruction or bowel wall thickening. There is no ascites or mesenteric inflammation. Normal appendix. Unremarkable soft tissues. No acute fracture. IMPRESSION: 1. No renal calculi or hydronephrosis. 2. Prostatomegaly with findings suggestive of chronic outlet obstruction. 3. No bowel obstruction or bowel wall thickening. 4. Hepatic steatosis. ACT 112: Negative or not required by law. The above report was generated using voice recognition software. It may contain grammatical, syntax or spelling errors. Electronically signed by: Sam Martines M.D. 06/17/2023 1:40 PM PG Care Time/CCT Total # of Minutes Spent Total Time Spent with Patient: Total time spent is greater than 50% in coordination of care (as documented) at patient's floor/unit and/or counseling patient: Coding Level of Care Code 00977 IN/OBS CONSULT LVL 5,80M Diagnoses Acute renal failure N17.9 Chronic kidney disease, stage 3 (moderate) N18.30 Hypertension I10
[2023-06-17] MEDS ORDERED: SODIUM BICARB 8.4% INJ 50 MEQ/50 ML SYR IV STA (14:38)
[2023-06-17] MEDS ORDERED: CARBOHYDRATES FOR HYPOGLYCEMIA PO PRN (14:54)
[2023-06-17] MEDS ORDERED: DEXTROSE 50% 50 ML SYRINGE IV PRN (14:54)
[2023-06-17] MEDS ORDERED: GLUCAGON FOR INJ 1 MG VIAL SQ PRN (14:54)
[2023-06-17] MEDS ORDERED: GLUCOSE 10 TAB/TUBE PO PRN (14:54)
[2023-06-17] MEDS ORDERED: GLUCOSE 40% GEL 15 GM TUBE PO PRN (14:54)
[2023-06-17] MEDS: SODIUM BICARBONATE 8.4% 150 MEQ in WATER, STERILE 1,000 ML IV SCH (15:30)
[2023-06-17] MEDS: INSULIN ASPART PER UNIT CHARGE SC SCH ×3 (17:00→23:54)
[2023-06-17 17:26] LABS: Base Excess VBG -7.1 mEq/L; HCO3 VBG 19 mmol/L; Oxygen Saturation VBG < 60.0 %; PCO2 VBG 38 mmHg (38-50); PO2 VBG 35 mmHg
[2023-06-17 17:49] LABS: BUN Creatinine Ratio 12.9 (10-20); Calcium 9.1 mg/dl (8.6-10.3); Creatinine Clr Calc Pharmacy 10.8 ml/min; Est GFR (Non-African American) 7.8 ml/min; Magnesium 2.6 mg/dl (1.7-2.4); Phosphorus 5.1 mg/dl (2.5-4.9); Potassium 4.8 mmol/L (3.5-5.1)
--- NOTE | 2023-06-17 18:14 | Electrocardiogram Report ---
Test Reason : Blood Pressure : / mmHG Vent. Rate : 059 BPM Atrial Rate : 059 BPM P-R Int : 204 ms QRS Dur : 086 ms QT Int : 422 ms P-R-T Axes : 038 -04 050 degrees QTc Int : 417 ms Sinus bradycardia with Premature atrial complexes Otherwise normal ECG No previous ECGs available Confirmed by Khalif Obrien ([id number]) on 06/17/2023 6:13:30 PM Referred By: Mitzi Hernández Confirmed By:Luan Obrien
[2023-06-17 19:57] LABS: Total Protein Urine Random 113.2 mg/dl (0-11.9)
[2023-06-17 20:03] LABS: Creatinine Urine Random 193.6 mg/dl; Creatinine Urine Random 193.7 mg/dl; Protein Creatinine Ratio Urine 0.6 (0-0.2)
[2023-06-17 20:37] LABS: BUN Creatinine Ratio 12.7 (10-20); Calcium 8.9 mg/dl (8.6-10.3); Creatinine Clr Calc Pharmacy 10.7 ml/min; Est GFR (Non-African American) 7.8 ml/min; Potassium 4.7 mmol/L (3.5-5.1)
[2023-06-17] MEDS ORDERED: ACETAMINOPHEN 325 MG TAB PO PRN (21:08)
[2023-06-17] MEDS: TAMSULOSIN HCL 0.4 MG CAP PO SCH (22:33)
[2023-06-17] MEDS: ATORVASTATIN 10 MG TAB PO SCH (22:33)
[2023-06-18] MEDS: SODIUM BICARBONATE 8.4% 150 MEQ in WATER, STERILE 1,000 ML IV SCH ×2 (06:12→19:45)
[2023-06-18] MEDS: INSULIN ASPART PER UNIT CHARGE SC SCH ×5 (06:12→19:46)
[2023-06-18 06:47] LABS: Base Excess VBG -4.2 mEq/L; HCO3 VBG 20 mmol/L; PCO2 VBG 34 mmHg (38-50); PO2 VBG 55 mmHg; pH VBG 7.38 (7.36-7.41)
[2023-06-18 06:52] LABS: Basophils # (auto) 0.04 K/uL (0.00-0.20); Basophils % (auto) 0.6 %; Eosinophils # (auto) 0.06 K/uL (0.00-0.50); Eosinophils % (auto) 0.9 %; Hematocrit (blood only) 32.3 % (42.0-52.0); Hemoglobin 11.3 g/dl (14.0-18.0); Immature Granulocytes # (auto) 0.01 K/uL (0.01-0.20); Immature Granulocytes % (auto) 0.2 %; Lymphocytes # (auto) 1.32 K/uL (1.20-3.40); Mean Corpuscular Hemoglobin 31.6 pg (25.0-34.0); Mean Corpuscular Volume 90.2 fL (80.0-100.0); Mean Platelet Volume 10.2 fL (9.4-12.4); Monocytes % (auto) 9.1 %; Neutrophils # (auto) 4.57 K/uL (1.40-6.50); Neutrophils % (auto) 69.2 %; Platelet Count 150 K/uL (130-400); RDW Coefficient of Variation 13.3 % (11.5-14.5); RDW Standard Deviation 44.2 fL (36.4-46.3); Red Blood Count 3.58 M/uL (4.70-6.10)
[2023-06-18] MEDS ORDERED: Nursing to Pharmacy Communication SCH (07:00)
[2023-06-18 07:22] LABS: BUN Creatinine Ratio 14.1 (10-20); Calcium 8.4 mg/dl (8.6-10.3); Creatinine Clr Calc Pharmacy 10.9 ml/min; Est GFR (African American) 9.3 ml/min; Magnesium 2.4 mg/dl (1.7-2.4); Potassium 4.7 mmol/L (3.5-5.1)
[2023-06-18] MEDS ORDERED: LORazepam 1 MG TAB PO PRN (07:44)
--- NOTE | 2023-06-18 07:45 | Hospitalist Progress Note ---
Date of Service June 18, 2023 Assessment & Plan (1) Acute renal failure: Plan: Admit to the PCU on tele 06/18 Multifactorial -- untreated BPH, HTN, DMII/alcohol use Cr 6.47 on admission--> 6.12 at present, CK trending down on repeat Nephrology on consult - appreciate recs/assistance/need for HD CTAP w/ chronic outlet obstruction Poe in place--> To continue per nephrology/urology outpt f/u (patient would like removed, can consider inpatient consult but did discuss would defer removal to prevent retention issues acutely IVF NaHCO3@80cc/hr for metabolic acidosis, pH improved to 7.38/CO2 22 Electrolytes improving possible dc IVF tomorrow if keeping up with oral intake (good intake reported today) CK 670 on admission (UA with blood, no RBCs, holding statin) --> 280 presently Lisinopril/metformin/glimepiride on hold given SARI Urine cx pending (no bacteria on UA) DVT proph: heparin SQ Renal dose meds/avoid nephrotoxins Monitor labs on repeat ECHO pending for new murmur on exam AWSS given hx alcohol use to monitor for any withdrawals (2) Metabolic acidosis: Plan: VBG on admit w/ pH 7.26 with pCO2 36 and pO2 41 No anion gap Likely due to renal failure Nephrology consulted/bicarb IVF Labs improving, continue IVF for now but likely able to discontinue tomorrow per nephrology Appreciate continued assistance from nephrology (3) Diabetes mellitus: Plan: Glu 232 on admission with SARI, holding home metformin/glimepiride Had been holding off basal insulin on admission to prevent hypoglycemia as likely taking longer to clear with SARI BSGs stable, will adjust sliding scale insulin for now CR 50--> 45, CR 1;15 Low K/DM diet Monitor/adjustments as needed (4) Hypermagnesemia: Plan: elevation suspected 2nd to renal failure monitoring on telemetry -- no issues normalized on repeat (5) Hyperphosphatemia: Plan: -Elevated at 1.2 -Due to his renal failure -Follow up on repeat labs today and daily (6) Dyslipidemia: Plan: Ck elevated, improving. continue to hold statin for now. if resolves in AM, consider resuming (7) Hypertension: Plan: Stable, BP 112/68 Holding lisinopril w/ acute renal failure -- would continue to hold until kidney function returns to baseline Monitor BP (8) Alcohol use: Plan: Previous reports of 1-2 30pks of beer weekly, now down to 2-3 beers 3-4x/week but did drink over holiday as well placed on folic acid and thiamine checked folic level, normal B12 low normal 255 -- IM replacement while inpatient, continue PO at discharge Continue daily thiamine for now AWSS risk protocol ordered No evidence for DTs at present Monitoring on telemetry Plan continued inpatient stay, IVF per nephrology (hopefully able to stop tomorrow if keeping with PO intake) Admission and Anticipated Discharge Date Admission Date: June 17, 2023 Supervising Physician Co-Signing Physician Notes The patient was not seen by me. The chart was reviewed. Case discussed with MICHELLE pU. Agree with assessment and plan Subjective Evaluated this morning. Feeling well. Poe with clear yellow urine draining. Eating/drinking without issue. No fever/chills, chest pain, shortness of breath. He is inquiring about getting rid of his poe catheter if possible as it is irritating. Will discuss with nephrology about stopping but will need to continue flomax. Physical Exam Physical Exam: General : WN/WD male sitting up in bed, NAD, reports feeling well but uncomfortable sleeping with catheter in place HEENT: head normocephalic, atraumatic, mmm, trachea midline Resp: CTA, no w/c/r, on room air CV: Sinus rhythm/sinus jett on monitor this morning, +systolic murmur, no pitting edema/calf tenderness GI: +BS, soft/NT, slight suprapubic discomfort reported from poe catheter : poe draining clear yellow urine MSK/Neuro: no focal deficits/slurred speech, answering questions appropriately Psych: alert, oriented x 3, cooperative with exam Results & Data Results & Data Vital Signs (Past 12 Hours) Vital Signs Temp Pulse Pulse Pulse Resp BP BP 06/18/23 07:10 59 L 06/18/23 04:22 36.7 C 56 L 20 96/59 L 06/17/23 23:40 36.7 C 53 L 20 117/67 06/17/23 21:00 36.7 C 62 14 161/79 H 06/17/23 21:00 62 20 06/17/23 20:55 63 24 06/17/23 20:00 23 133/64 06/17/23 21:01 Pulse Ox O2 Del Method 06/18/23 07:10 06/18/23 04:22 95 Room Air 06/17/23 23:40 96 Room Air 06/17/23 21:00 98 Room Air 06/17/23 21:00 06/17/23 20:55 06/17/23 20:00 96 06/17/23 21:01 Room Air Laboratory Results 06/18/23 06/18/23 06/18/23 Range/Units 12:01 11:22 07:55 WBC (4.8-10.8) K/ul RBC (4.70-6.10) M/uL Hgb (14.0-18.0) g/dl Hct (42.0-52.0) % MCV (80.0-100.0) fL MCH (25.0-34.0) pg MCHC (32.0-36.0) g/dL RDW Std Deviation (36.4-46.3) fL RDW Coeff of Alen (11.5-14.5) % Plt Count (130-400) K/uL MPV (9.4-12.4) fL Immature Gran % (Auto) % Neut % (Auto) % Lymph % (Auto) % Nash % (Auto) % Eos % (Auto) % Baso % (Auto) % Neut # (Auto) (1.40-6.50) K/uL Lymph # (Auto) (1.20-3.40) K/uL Nash # (Auto) (0.11-0.59) K/uL Eos # (Auto) (0.00-0.50) K/uL Baso # (Auto) (0.00-0.20) K/uL Immature Gran # (Auto) (0.01-0.20) K/uL VBG pH (7.36-7.41) VBG pCO2 (38-50) mmHg VBG pO2 mmHg VBG HCO3 mmol/L VBG O2 Saturation % VBG Base Excess mEq/L Sodium (136-145) mmol/L Potassium (3.5-5.1) mmol/L Chloride (98-107) mmol/L Carbon Dioxide (21-32) mmol/L Anion Gap (3-11) BUN (6-23) mg/dl Creatinine (0.6-1.4) mg/dl Est Cr Clr Drug Dosing ml/min Est GFR ( Amer) ml/min Est GFR (Non-Af Amer) ml/min BUN/Creatinine Ratio (10-20) Glucose (70-99(Fasting)) mg/dl POC Glucose 193 H 228 H 90 (70-99) mg/dl Calcium (8.6-10.3) mg/dl Phosphorus (2.5-4.9) mg/dl Magnesium (1.7-2.4) mg/dl Total Bilirubin (0.2-1.0) mg/dl AST (13-39) U/L ALT (7-52) U/L Alkaline Phosphatase (34-104) U/L Total Creatine Kinase (30-223) U/L Total Protein (6.0-8.3) gm/dl Albumin (3.4-5.0) gm/dl Globulin (2.5-4.0) gm/dl Albumin/Globulin Ratio (0.9-2) Vitamin B12 (180-914) pg/ml Folate (>5.38) ng/ml Ur Random Creatinine mg/dl U Random Total Protein (0-11.9) mg/dl Ur Random Sodium mmol/L Protein/Creatinin Ratio (0-0.2) 06/18/23 06/18/23 06/18/23 Range/Units 06:31 06:31 06:31 WBC (4.8-10.8) K/ul RBC (4.70-6.10) M/uL Hgb (14.0-18.0) g/dl Hct (42.0-52.0) % MCV (80.0-100.0) fL MCH (25.0-34.0) pg MCHC (32.0-36.0) g/dL RDW Std Deviation (36.4-46.3) fL RDW Coeff of Alen (11.5-14.5) % Plt Count (130-400) K/uL MPV (9.4-12.4) fL Immature Gran % (Auto) % Neut % (Auto) % Lymph % (Auto) % Nash % (Auto) % Eos % (Auto) % Baso % (Auto) % Neut # (Auto) (1.40-6.50) K/uL Lymph # (Auto) (1.20-3.40) K/uL Nash # (Auto) (0.11-0.59) K/uL Eos # (Auto) (0.00-0.50) K/uL Baso # (Auto) (0.00-0.20) K/uL Immature Gran # (Auto) (0.01-0.20) K/uL VBG pH 7.38 (7.36-7.41) VBG pCO2 34 L (38-50) mmHg VBG pO2 55 mmHg VBG HCO3 20 mmol/L VBG O2 Saturation 87.0 % VBG Base Excess -4.2 mEq/L Sodium 138 (136-145) mmol/L Potassium 4.7 (3.5-5.1) mmol/L Chloride 108 H (98-107) mmol/L Carbon Dioxide 22 (21-32) mmol/L Anion Gap 8 (3-11) BUN 86 H (6-23) mg/dl Creatinine 6.12 H* (0.6-1.4) mg/dl Est Cr Clr Drug Dosing 10.9 ml/min Est GFR ( Amer) 9.3 ml/min Est GFR (Non-Af Amer) 8.0 ml/min BUN/Creatinine Ratio 14.1 (10-20) Glucose 79 (70-99(Fasting)) mg/dl POC Glucose (70-99) mg/dl Calcium 8.4 L (8.6-10.3) mg/dl Phosphorus (2.5-4.9) mg/dl Magnesium 2.4 (1.7-2.4) mg/dl Total Bilirubin (0.2-1.0) mg/dl AST (13-39) U/L ALT (7-52) U/L Alkaline Phosphatase (34-104) U/L Total Creatine Kinase 280 H (30-223) U/L Total Protein (6.0-8.3) gm/dl Albumin (3.4-5.0) gm/dl Globulin (2.5-4.0) gm/dl Albumin/Globulin Ratio (0.9-2) Vitamin B12 255 (180-914) pg/ml Folate 14.50 (>5.38) ng/ml Ur Random Creatinine mg/dl U Random Total Protein (0-11.9) mg/dl Ur Random Sodium mmol/L Protein/Creatinin Ratio (0-0.2) 06/18/23 06/18/23 06/17/23 Range/Units 06:31 06:06 23:45 WBC 6.60 (4.8-10.8) K/ul RBC 3.58 L (4.70-6.10) M/uL Hgb 11.3 L (14.0-18.0) g/dl Hct 32.3 L (42.0-52.0) % MCV 90.2 (80.0-100.0) fL MCH 31.6 (25.0-34.0) pg MCHC 35.0 (32.0-36.0) g/dL RDW Std Deviation 44.2 (36.4-46.3) fL RDW Coeff of Alen 13.3 (11.5-14.5) % Plt Count 150 (130-400) K/uL MPV 10.2 (9.4-12.4) fL Immature Gran % (Auto) 0.2 % Neut % (Auto) 69.2 % Lymph % (Auto) 20.0 % Nash % (Auto) 9.1 % Eos % (Auto) 0.9 % Baso % (Auto) 0.6 % Neut # (Auto) 4.57 (1.40-6.50) K/uL Lymph # (Auto) 1.32 (1.20-3.40) K/uL Nash # (Auto) 0.60 H (0.11-0.59) K/uL Eos # (Auto) 0.06 (0.00-0.50) K/uL Baso # (Auto) 0.04 (0.00-0.20) K/uL Immature Gran # (Auto) 0.01 (0.01-0.20) K/uL VBG pH (7.36-7.41) VBG pCO2 (38-50) mmHg VBG pO2 mmHg VBG HCO3 mmol/L VBG O2 Saturation % VBG Base Excess mEq/L Sodium (136-145) mmol/L Potassium (3.5-5.1) mmol/L Chloride (98-107) mmol/L Carbon Dioxide (21-32) mmol/L Anion Gap (3-11) BUN (6-23) mg/dl Creatinine (0.6-1.4) mg/dl Est Cr Clr Drug Dosing ml/min Est GFR ( Amer) ml/min Est GFR (Non-Af Amer) ml/min BUN/Creatinine Ratio (10-20) Glucose (70-99(Fasting)) mg/dl POC Glucose 74 105 H (70-99) mg/dl Calcium (8.6-10.3) mg/dl Phosphorus (2.5-4.9) mg/dl Magnesium (1.7-2.4) mg/dl Total Bilirubin (0.2-1.0) mg/dl AST (13-39) U/L ALT (7-52) U/L Alkaline Phosphatase (34-104) U/L Total Creatine Kinase (30-223) U/L Total Protein (6.0-8.3) gm/dl Albumin (3.4-5.0) gm/dl Globulin (2.5-4.0) gm/dl Albumin/Globulin Ratio (0.9-2) Vitamin B12 (180-914) pg/ml Folate (>5.38) ng/ml Ur Random Creatinine mg/dl U Random Total Protein (0-11.9) mg/dl Ur Random Sodium mmol/L Protein/Creatinin Ratio (0-0.2) 06/17/23 06/17/23 06/17/23 Range/Units 20:03 17:15 17:11 WBC (4.8-10.8) K/ul RBC (4.70-6.10) M/uL Hgb (14.0-18.0) g/dl Hct (42.0-52.0) % MCV (80.0-100.0) fL MCH (25.0-34.0) pg MCHC (32.0-36.0) g/dL RDW Std Deviation (36.4-46.3) fL RDW Coeff of Alen (11.5-14.5) % Plt Count (130-400) K/uL MPV (9.4-12.4) fL Immature Gran % (Auto) % Neut % (Auto) % Lymph % (Auto) % Nash % (Auto) % Eos % (Auto) % Baso % (Auto) % Neut # (Auto) (1.40-6.50) K/uL Lymph # (Auto) (1.20-3.40) K/uL Nash # (Auto) (0.11-0.59) K/uL Eos # (Auto) (0.00-0.50) K/uL Baso # (Auto) (0.00-0.20) K/uL Immature Gran # (Auto) (0.01-0.20) K/uL VBG pH 7.30 L (7.36-7.41) VBG pCO2 38 (38-50) mmHg VBG pO2 35 mmHg VBG HCO3 19 mmol/L VBG O2 Saturation < 60.0 % VBG Base Excess -7.1 mEq/L Sodium 137 (136-145) mmol/L Potassium 4.7 (3.5-5.1) mmol/L Chloride 109 H (98-107) mmol/L Carbon Dioxide 20 L (21-32) mmol/L Anion Gap 8 (3-11) BUN 80 H (6-23) mg/dl Creatinine 6.29 H* (0.6-1.4) mg/dl Est Cr Clr Drug Dosing 10.7 ml/min Est GFR ( Amer) 9.0 ml/min Est GFR (Non-Af Amer) 7.8 ml/min BUN/Creatinine Ratio 12.7 (10-20) Glucose 144 H (70-99(Fasting)) mg/dl POC Glucose 101 H (70-99) mg/dl Calcium 8.9 (8.6-10.3) mg/dl Phosphorus (2.5-4.9) mg/dl Magnesium (1.7-2.4) mg/dl Total Bilirubin (0.2-1.0) mg/dl AST (13-39) U/L ALT (7-52) U/L Alkaline Phosphatase (34-104) U/L Total Creatine Kinase (30-223) U/L Total Protein (6.0-8.3) gm/dl Albumin (3.4-5.0) gm/dl Globulin (2.5-4.0) gm/dl Albumin/Globulin Ratio (0.9-2) Vitamin B12 (180-914) pg/ml Folate (>5.38) ng/ml Ur Random Creatinine mg/dl U Random Total Protein (0-11.9) mg/dl Ur Random Sodium mmol/L Protein/Creatinin Ratio (0-0.2) 06/17/23 06/17/23 06/17/23 Range/Units 17:11 13:14 11:48 WBC (4.8-10.8) K/ul RBC (4.70-6.10) M/uL Hgb (14.0-18.0) g/dl Hct (42.0-52.0) % MCV (80.0-100.0) fL MCH (25.0-34.0) pg MCHC (32.0-36.0) g/dL RDW Std Deviation (36.4-46.3) fL RDW Coeff of Alen (11.5-14.5) % Plt Count (130-400) K/uL MPV (9.4-12.4) fL Immature Gran % (Auto) % Neut % (Auto) % Lymph % (Auto) % Nash % (Auto) % Eos % (Auto) % Baso % (Auto) % Neut # (Auto) (1.40-6.50) K/uL Lymph # (Auto) (1.20-3.40) K/uL Nash # (Auto) (0.11-0.59) K/uL Eos # (Auto) (0.00-0.50) K/uL Baso # (Auto) (0.00-0.20) K/uL Immature Gran # (Auto) (0.01-0.20) K/uL VBG pH 7.26 L (7.36-7.41) VBG pCO2 36 L (38-50) mmHg VBG pO2 41 mmHg VBG HCO3 16 mmol/L VBG O2 Saturation 64.6 % VBG Base Excess -10.0 mEq/L Sodium 139 (136-145) mmol/L Potassium 4.8 (3.5-5.1) mmol/L Chloride 111 H (98-107) mmol/L Carbon Dioxide 19 L (21-32) mmol/L Anion Gap 9 (3-11) BUN 81 H (6-23) mg/dl Creatinine 6.27 H* (0.6-1.4) mg/dl Est Cr Clr Drug Dosing 10.8 ml/min Est GFR ( Amer) 9.0 ml/min Est GFR (Non-Af Amer) 7.8 ml/min BUN/Creatinine Ratio 12.9 (10-20) Glucose 92 (70-99(Fasting)) mg/dl POC Glucose (70-99) mg/dl Calcium 9.1 (8.6-10.3) mg/dl Phosphorus 5.1 H (2.5-4.9) mg/dl Magnesium 2.6 H (1.7-2.4) mg/dl Total Bilirubin (0.2-1.0) mg/dl AST (13-39) U/L ALT (7-52) U/L Alkaline Phosphatase (34-104) U/L Total Creatine Kinase 488 H (30-223) U/L Total Protein (6.0-8.3) gm/dl Albumin (3.4-5.0) gm/dl Globulin (2.5-4.0) gm/dl Albumin/Globulin Ratio (0.9-2) Vitamin B12 (180-914) pg/ml Folate (>5.38) ng/ml Ur Random Creatinine 193.6 mg/dl U Random Total Protein (0-11.9) mg/dl Ur Random Sodium 54 mmol/L Protein/Creatinin Ratio (0-0.2) 06/17/23 06/17/23 Range/Units 11:48 10:50 WBC (4.8-10.8) K/ul RBC (4.70-6.10) M/uL Hgb (14.0-18.0) g/dl Hct (42.0-52.0) % MCV (80.0-100.0) fL MCH (25.0-34.0) pg MCHC (32.0-36.0) g/dL RDW Std Deviation (36.4-46.3) fL RDW Coeff of Alen (11.5-14.5) % Plt Count (130-400) K/uL MPV (9.4-12.4) fL Immature Gran % (Auto) % Neut % (Auto) % Lymph % (Auto) % Nash % (Auto) % Eos % (Auto) % Baso % (Auto) % Neut # (Auto) (1.40-6.50) K/uL Lymph # (Auto) (1.20-3.40) K/uL Nash # (Auto) (0.11-0.59) K/uL Eos # (Auto) (0.00-0.50) K/uL Baso # (Auto) (0.00-0.20) K/uL Immature Gran # (Auto) (0.01-0.20) K/uL VBG pH (7.36-7.41) VBG pCO2 (38-50) mmHg VBG pO2 mmHg VBG HCO3 mmol/L VBG O2 Saturation % VBG Base Excess mEq/L Sodium 135 L (136-145) mmol/L Potassium 5.1 (3.5-5.1) mmol/L Chloride 110 H (98-107) mmol/L Carbon Dioxide 14 L (21-32) mmol/L Anion Gap 11 (3-11) BUN 79 H (6-23) mg/dl Creatinine 6.47 H* (0.6-1.4) mg/dl Est Cr Clr Drug Dosing 10.4 ml/min Est GFR ( Amer) 8.7 ml/min Est GFR (Non-Af Amer) 7.5 ml/min BUN/Creatinine Ratio 12.2 (10-20) Glucose 232 H (70-99(Fasting)) mg/dl POC Glucose (70-99) mg/dl Calcium 9.6 (8.6-10.3) mg/dl Phosphorus 5.7 H (2.5-4.9) mg/dl Magnesium 2.5 H (1.7-2.4) mg/dl Total Bilirubin 1.2 H (0.2-1.0) mg/dl AST 29 (13-39) U/L ALT 23 (7-52) U/L Alkaline Phosphatase 43 (34-104) U/L Total Creatine Kinase 670 H (30-223) U/L Total Protein 7.5 (6.0-8.3) gm/dl Albumin 4.4 (3.4-5.0) gm/dl Globulin 3.1 (2.5-4.0) gm/dl Albumin/Globulin Ratio 1.4 (0.9-2) Vitamin B12 (180-914) pg/ml Folate (>5.38) ng/ml Ur Random Creatinine 193.7 mg/dl U Random Total Protein 113.2 H (0-11.9) mg/dl Ur Random Sodium mmol/L Protein/Creatinin Ratio 0.6 H (0-0.2) Diagnostic Findings Abdomen/Pelvis CT 06/17/23 12:[address] WITHOUT CONTRAST CT DOSE: 1399.33 mGy.cm HISTORY: Acute renal failure acute renal failure TECHNIQUE: Multiaxial CT images of the abdomen and pelvis were performed without contrast. A dose lowering technique was utilized adhering to the principles of ALARA. COMPARISON STUDY: None. FINDINGS: Cardiomegaly with coronary arterial calcifications. Mild bibasilar groundglass densities favor atelectasis. No pneumatosis or pneumoperitoneum. Calcified granulomata throughout the spleen. Unremarkable pancreas, gallbladder and adrenal glands. Hepatic steatosis. Nonspecific bilateral perinephric stranding. No urolith or hydronephrosis. Prostatomegaly. Urine bladder wall thickening with partial distention. Atherosclerosis of the aorta without aneurysm. No lymphadenopathy. No bowel obstruction or bowel wall thickening. There is no ascites or mesenteric inflammation. Normal appendix. Unremarkable soft tissues. No acute fracture. IMPRESSION: 1. No renal calculi or hydronephrosis. 2. Prostatomegaly with findings suggestive of chronic outlet obstruction. 3. No bowel obstruction or bowel wall thickening. 4. Hepatic steatosis. ACT 112: Negative or not required by law. The above report was generated using voice recognition software. It may contain grammatical, syntax or spelling errors. Electronically signed by: Sam Martines M.D. 06/17/2023 1:40 PM PG Care Time/CCT Total # of Minutes Spent Total Time Spent with Patient: Total time spent is greater than 50% in coordination of care (as documented) at patient's floor/unit and/or counseling patient: Coding Level of Care Code 48382 SUB INP/OBS CARE 3/50MIN Diagnoses Acute renal failure N17.9 Metabolic acidosis E87.20 Diabetes mellitus E11.9 Hypermagnesemia E83.41 Hyperphosphatemia E83.39 Dyslipidemia E78.5 Hypertension I10 Alcohol use Z78.9
[2023-06-18 09:02] LABS: Folate (Folic Acid),Ser orPlas 14.5 ng/ml (>5.38)
[2023-06-18] MEDS: FOLIC ACID 1 MG TAB PO SCH (09:02)
[2023-06-18] MEDS: THIAMINE HCL 100 MG TAB PO SCH (09:03)
[2023-06-18] MEDS: CYANOCOBALAMIN 1000 MCG/ML VIAL IM SCH (09:57)
--- NOTE | 2023-06-18 11:05 | XCELERA ---
[id number]}___[id number]
--- NOTE | 2023-06-18 12:07 | Nephrology Progress Note ---
Date of Service June 18, 2023 Assessment & Plan (1) Acute renal failure: (2) Chronic kidney disease, stage 3a: (3) Metabolic acidosis: (4) Hyperphosphatemia: (5) Hypertension: (6) Diabetes mellitus: (7) Bladder outlet obstruction: Plan 78 year old male with past medical history significant for stage IIIa CKD baseline creatinine 1.3-1.4 most likely secondary to microvascular disease with history of hypertension diabetes hypercholesterolemia. Recently he had outpatient labs done by his PCP showing creatinine of 3.4 on 06/15/2023, repeat lab yesterday showed creatinine of 6.5 and he was referred to ER for further evaluation. Urinalysis showed low-grade proteinuria and 3+ blood but no RBCs, no bacteria. CT abdomen pelvis without contrast was negative for hydronephrosis or any other structural abnormality but there was concern for prostatomegaly and chronic bladder outlet obstruction. Had a Jackson catheter placed with 400 cc of urine output. He reported noticing decreased urine output the day before admission. Labs this morning showed slight improvement in creatinine to 6.1, electrolytes improving. Blood pressure well controlled, volume status acceptable, overall otherwise feeling well. --Continue to monitor renal function with daily lab, expect renal function to continue to improve. Recommend to keep the Jackson catheter in and schedule urologic evaluation as an outpatient. --Okay to continue on IV fluid today however if p.o. intake remains adequate, can be discontinued by tomorrow. Will follow Admission and Anticipated Discharge Date Admission Date: June 17, 2023 Subjective Mr. Andrews was seen and evaluated this morning. Overall he feels fine except discomfort with the Jackson catheter. Blood pressure well controlled. Urine output decent. Renal function slightly improved, creatinine down to 6.1 from peak of 6.5 yesterday, bicarb improved to 22 other electrolyte reasonable. Review of Systems Review of Systems: Detailed review of system was otherwise unremarkable except mentioned above. Physical Exam Constitutional: WD/WN, vitals as above no acute distress Eyes: + anicteric sclerae ENMT: Ears: no hearing impairment Neck: normal visual inspection Respiratory: Auscultation: lungs clear to auscultation bilaterally Cardiovascular: Rate/Rhythm: regular rate and regular rhythm Extremities: no edema Skin: no rashes, warm and dry Neurologic: no focal motor deficits Psychiatric: Orientation: alert and oriented x 3 Results & Data Vital Signs (Past 12 Hours) Vital Signs Temp Pulse Pulse Resp BP Pulse Ox O2 Del Method 06/18/23 08:00 36.7 C 89 18 112/68 97 Room Air 06/18/23 07:10 59 L 06/18/23 04:22 36.7 C 56 L 20 96/59 L 95 Room Air PG Care Time/CCT Total # of Minutes Spent Total Time Spent with Patient: Total time spent is greater than 50% in coordination of care (as documented) at patient's floor/unit and/or counseling patient: Coding Level of Care Code 05409 SUB INP/OBS CARE 2/35MIN Diagnoses Acute renal failure N17.9 Chronic kidney disease, stage 3a N18.31 Metabolic acidosis E87.20 Hyperphosphatemia E83.39 Hypertension I10 Diabetes mellitus E11.9 Bladder outlet obstruction N32.0
[2023-06-18] MEDS: TAMSULOSIN HCL 0.4 MG CAP PO SCH (19:45)
[2023-06-18] MEDS: ATORVASTATIN 10 MG TAB PO SCH (19:45)
[2023-06-19 07:34] LABS: Hematocrit (blood only) 32.3 % (42.0-52.0); Hemoglobin 11.3 g/dl (14.0-18.0); Mean Corpuscular Hemoglobin 31.4 pg (25.0-34.0); Mean Corpuscular Volume 89.7 fL (80.0-100.0); Mean Platelet Volume 10.5 fL (9.4-12.4); Platelet Count 140 K/uL (130-400); RDW Coefficient of Variation 13.1 % (11.5-14.5); RDW Standard Deviation 43.3 fL (36.4-46.3); White Blood Count 5.96 K/ul (4.8-10.8)
--- NOTE | 2023-06-19 07:36 | Hospitalist Progress Note ---
Date of Service June 19, 2023 Assessment & Plan (1) Acute renal failure: Plan: Admit to the PCU on tele 06/18 Multifactorial -- untreated BPH, HTN, DMII/alcohol use CTAP w/ chronic outlet obstruction Cr 6.47 on admission, elevated CK (improved on repeat/almost resolved day prior to dc IVF) Poe in place--> To continue per nephrology/urology outpt f/u (patient would like removed, can consider inpatient consult but did discuss would defer removal to prevent retention issues acutely) --> I discussed case w/ Dr Connor in house this weekend and recommended patient KEEP poe for now, voiding trial in office/management of BPH Nephrology on consult Had been on IVF w/ NaHCO3 Electrolytes improved and stable, no further acidosis, pH wnl on repeat Cr improved to 3.84 today D/C IVF per nephro, has been keeping up with PO intake Lisinopril/metformin/glimepride still on hold given SARI (would not resume until normalized) Renal dose meds/avoid nephrotoxins Urine cx NO growth DVT proph: Heparin SQ PT/OT consults placed Patient anxious for dc when able --> discussed if renal function continues to improve tomorrow can d/c with poe and close monitoring of outpatient labs/ur ology follow up for voiding trial. Again, did discuss w/ Dr Connor and rec'd to continue poe but if patient adamant about consideration for removal before dc can consult them tomorrow (2) Metabolic acidosis: Plan: VBG on admit w/ pH 7.26 with pCO2 36 and pO2 41. No anion gap, suspect due to acute renal failure -- nephrology consulted/bicarb IVF as above and resolved on repeat labs Dc IVF today, monitor labs on repeat (3) Diabetes mellitus: Plan: Glu 232 on admission with SARI Holding home metformin/glimepiride Had been holding off basal insulin on admission to prevent hypoglycemia as likely taking longer to clear with SARI BSGs stable, will adjust sliding scale insulin for now CR 50--> 45--> 40, CR 1;15 Low K/DM diet Monitor/adjustments as needed (4) Hypermagnesemia: Plan: elevation suspected 2nd to renal failure monitoring on telemetry -- no issues normalized on repeat (5) Hyperphosphatemia: Plan: repeat wnl (6) Dyslipidemia: Plan: Ck elevated, improving to 280 yesterday on continuous IVF can resume statin tomorrow/at discharge (7) Hypertension: Plan: Stable, BP 116/69 Holding lisinopril w/ acute renal failure -- would continue to hold until kidney function returns to baseline and BP has been WELL CONTROLLED off lisinopril while inpatient Monitor BP (8) Alcohol use: Plan: Previous reports of 1-2 30pks of beer weekly, now down to 2-3 beers 3-4x/week but did drink over holiday as well placed on folic acid and thiamine checked folic level, normal B12 low normal 255 -- IM replacement while inpatient, continue PO at discharge Continue daily thiamine for now AWSS risk protocol ordered No evidence for DTs at present Monitoring on telemetry (9) Murmur: Plan: ECHO obtained given murmur on exam w/ no prior ECHO --> mild aortic stenosis, trivial mild aortic insufficiency, mild mitral regurgitation. EF normal, no wma F/u PCP Plan continued inpatient stay PT/OT consulted repeat labs in AM --> if renal function continued improvement can consider dc w/ close monitoring of labs and urology f/u for voiding trial again, can consider reaching out to urology in AM (notified of need for f/u today with Dr Connor) if patient wanting to trial voiding prior to dc but advised against given significantly enlarged prostate Admission and Anticipated Discharge Date Admission Date: June 17, 2023 Supervising Physician Co-Signing Physician Notes The patient was not seen by me. The chart was reviewed. Case discussed with MICHELLE Up. Agree with assessment and plan Subjective Evaluated this morning, at bedside, went to bathroom, moved his bowels. Poe in place, clear yellow urine. Discussed will await input from nephrology but renal function much improved/electrolytes stable and possible dc IVF today. Discussed to CONTINUE poe and would continue such until outpt f/u Urology for voiding trial. Patient asked about possible dc today -- discussed will see how labs are in AM and if trending down, can possibly consider dc with outpatient labs for continued monitoring and holding his lisinopril/metformin/renal toxic meds. No fever/chills, chest pain, shortness of breath, abdominal pain or nausea reported. Questions/concerns addressed at this time. Physical Exam Physical Exam: General : WN/WD male in bed, in room, NAD, inquiring about cath eter/discharge HEENT: head normocephalic, atraumatic, mmm, trachea midline Resp: CTA, no w/c/r, on room air CV: Sinus rhythm/sinus jett on monitor this morning, +systolic murmur, no pitting edema/calf tenderness GI: +BS, soft/NT, slight suprapubic discomfort reported from poe catheter : poe draining clear yellow urine MSK/Neuro: no focal deficits/slurred speech, answering questions appropriately Psych: alert, oriented x 3, cooperative with exam Results & Data Results & Data Vital Signs (Past 12 Hours) Vital Signs Temp Pulse Resp BP Pulse Ox O2 Del Method 06/19/23 03:33 36.7 C 55 L 14 96 Room Air 06/18/23 22:45 36.5 C 78 18 119/68 97 Room Air Laboratory Results 06/19/23 06/19/23 06/19/23 Range/Units 11:32 07:33 07:11 WBC 5.96 (4.8-10.8) K/ul RBC 3.60 L (4.70-6.10) M/uL Hgb 11.3 L (14.0-18.0) g/dl Hct 32.3 L (42.0-52.0) % MCV 89.7 (80.0-100.0) fL MCH 31.4 (25.0-34.0) pg MCHC 35.0 (32.0-36.0) g/dL RDW Std Deviation 43.3 (36.4-46.3) fL RDW Coeff of Alen 13.1 (11.5-14.5) % Plt Count 140 (130-400) K/uL MPV 10.5 (9.4-12.4) fL Sodium (136-145) mmol/L Potassium (3.5-5.1) mmol/L Chloride (98-107) mmol/L Carbon Dioxide (21-32) mmol/L Anion Gap (3-11) BUN (6-23) mg/dl Creatinine (0.6-1.4) mg/dl Est Cr Clr Drug Dosing ml/min Est GFR ( Amer) ml/min Est GFR (Non-Af Amer) ml/min BUN/Creatinine Ratio (10-20) Glucose (70-99(Fasting)) mg/dl POC Glucose 192 H 109 H (70-99) mg/dl Calcium (8.6-10.3) mg/dl Phosphorus (2.5-4.9) mg/dl Magnesium (1.7-2.4) mg/dl Albumin (3.4-5.0) gm/dl 06/19/23 06/18/23 Range/Units 07:11 16:30 WBC (4.8-10.8) K/ul RBC (4.70-6.10) M/uL Hgb (14.0-18.0) g/dl Hct (42.0-52.0) % MCV (80.0-100.0) fL MCH (25.0-34.0) pg MCHC (32.0-36.0) g/dL RDW Std Deviation (36.4-46.3) fL RDW Coeff of Alen (11.5-14.5) % Plt Count (130-400) K/uL MPV (9.4-12.4) fL Sodium 139 (136-145) mmol/L Potassium 4.6 (3.5-5.1) mmol/L Chloride 104 (98-107) mmol/L Carbon Dioxide 30 (21-32) mmol/L Anion Gap 5 (3-11) BUN 70 H (6-23) mg/dl Creatinine 3.84 H D (0.6-1.4) mg/dl Est Cr Clr Drug Dosing 17.4 ml/min Est GFR ( Amer) 16.4 ml/min Est GFR (Non-Af Amer) 14.1 ml/min BUN/Creatinine Ratio 18.2 (10-20) Glucose 113 H (70-99(Fasting)) mg/dl POC Glucose 179 H (70-99) mg/dl Calcium 8.1 L (8.6-10.3) mg/dl Phosphorus 3.6 D (2.5-4.9) mg/dl Magnesium 2.3 (1.7-2.4) mg/dl Albumin 3.6 (3.4-5.0) gm/dl PG Care Time/CCT Total # of Minutes Spent Total Time Spent with Patient: Total time spent is greater than 50% in coordination of care (as documented) at patient's floor/unit and/or counseling patient: Coding Level of Care Code 26228 SUB INP/OBS CARE 350MIN Diagnoses Acute renal failure N17.9 Metabolic acidosis E87.20 Diabetes mellitus E11.9 Hypermagnesemia E83.41 Hyperphosphatemia E83.39 Dyslipidemia E78.5 Hypertension I10 Alcohol use Z78.9 Murmur R01.1
[2023-06-19] MEDS: FOLIC ACID 1 MG TAB PO SCH (08:07)
[2023-06-19] MEDS: INSULIN ASPART PER UNIT CHARGE SC SCH ×4 (08:07→20:24)
[2023-06-19] MEDS: THIAMINE HCL 100 MG TAB PO SCH (08:07)
[2023-06-19] MEDS: CYANOCOBALAMIN 1000 MCG/ML VIAL IM SCH (08:07)
[2023-06-19 08:15] LABS: Albumin Level 3.6 gm/dl (3.4-5.0); BUN Creatinine Ratio 18.2 (10-20); Calcium 8.1 mg/dl (8.6-10.3); Creatinine Clr Calc Pharmacy 17.4 ml/min; Est GFR (African American) 16.4 ml/min; Est GFR (Non-African American) 14.1 ml/min; Magnesium 2.3 mg/dl (1.7-2.4); Phosphorus 3.6 mg/dl (2.5-4.9); Potassium 4.6 mmol/L (3.5-5.1)
[2023-06-19] MEDS: SODIUM BICARBONATE 8.4% 150 MEQ in WATER, STERILE 1,000 ML IV SCH (09:40)
--- NOTE | 2023-06-19 11:19 | Nephrology Progress Note ---
Date of Service June 19, 2023 Assessment & Plan (1) Acute renal failure: (2) Chronic kidney disease, stage 3a: (3) Metabolic acidosis: (4) Hyperphosphatemia: (5) Hypertension: (6) Diabetes mellitus: (7) Bladder outlet obstruction: Plan 78 year old male with past medical history significant for stage IIIa CKD baseline creatinine 1.3-1.4 most likely secondary to microvascular disease with history of hypertension diabetes hypercholesterolemia. Recently he had outpatient labs done by his PCP showing creatinine of 3.4 on 06/15/2023, repeat lab yesterday showed creatinine of 6.5 and he was referred to ER for further evaluation. Urinalysis showed low-grade proteinuria and 3+ blood but no RBCs, no bacteria. CT abdomen pelvis without contrast was negative for hydronephrosis or any other structural abnormality but there was concern for prostatomegaly and chronic bladder outlet obstruction. Had a Jackson catheter placed with 400 cc of urine output. He reported noticing decreased urine output the day before admission. Labs this morning showed slight improvement in creatinine to 6.1, electrolytes improving. Blood pressure well controlled, volume status acceptable, overall otherwise feeling well. --Continue to monitor renal function with daily lab, expect renal function to continue to improve. Recommend to keep the Jackson catheter in and schedule urologic evaluation as an outpatient. -- Discontinue IV fluid, encourage p.o. intake -- Okay to be discharged with close outpatient lab monitoring if patient is comfortable to go home with Jackson catheter. Other option would be to remove the catheter and give voiding trial before discharge. If patient gets discharged home without Jackson catheter he should have outpatient urology evaluation soon with close outpatient lab monitoring Will follow Admission and Anticipated Discharge Date Admission Date: June 17, 2023 Subjective Mr. Andrews was seen and evaluated this morning with his at bedside. Overall he feels fine except discomfort with the Jackson catheter. Blood pressure well controlled. Urine output decent. Renal function continues to improve rapidly creatinine down to 3.8 from peak of 6.1 yesterday, electrolyte reasonable. Review of Systems Review of Systems: Detailed review of system was otherwise unremarkable except mentioned above. Physical Exam Constitutional: WD/WN, vitals as above no acute distress Eyes: + anicteric sclerae ENMT: Ears: no hearing impairment Neck: normal visual inspection Respiratory: Auscultation: lungs clear to auscultation bilaterally Cardiovascular: Rate/Rhythm: regular rate and regular rhythm Extremities: no edema Skin: no rashes, warm and dry Neurologic: no focal motor deficits Psychiatric: Orientation: alert and oriented x 3 Results & Data Vital Signs (Past 12 Hours) Vital Signs Temp Pulse Pulse Resp BP Pulse Ox O2 Del Method 06/19/23 08:00 37.2 C 60 14 129/58 L 97 Room Air 06/19/23 07:30 46 L 06/19/23 03:33 36.7 C 55 L 14 96 Room Air PG Care Time/CCT Total # of Minutes Spent Total Time Spent with Patient: Total time spent is greater than 50% in coordination of care (as documented) at patient's floor/unit and/or counseling patient: Coding Level of Care Code 99902 SUB INP/OBS CARE 2/35MIN Diagnoses Acute renal failure N17.9 Chronic kidney disease, stage 3a N18.31 Metabolic acidosis E87.20 Hyperphosphatemia E83.39 Hypertension I10 Diabetes mellitus E11.9 Bladder outlet obstruction N32.0
[2023-06-19] MEDS: ATORVASTATIN 10 MG TAB PO SCH (20:25)
[2023-06-19] MEDS: TAMSULOSIN HCL 0.4 MG CAP PO SCH (20:25)
[2023-06-20 06:52] LABS: Hematocrit (blood only) 34.1 % (42.0-52.0); Hemoglobin 11.9 g/dl (14.0-18.0); Mean Corpuscular Hemoglobin 31.4 pg (25.0-34.0); Mean Corpuscular Hgb Conc 34.9 g/dL (32.0-36.0); Mean Platelet Volume 10.9 fL (9.4-12.4); Platelet Count 145 K/uL (130-400); RDW Standard Deviation 42.9 fL (36.4-46.3); Red Blood Count 3.79 M/uL (4.70-6.10)
[2023-06-20 07:16] LABS: Albumin Level 3.9 gm/dl (3.4-5.0); BUN Creatinine Ratio 19.4 (10-20); Bilirubin Direct 0.3 mg/dl (0-0.2); Bilirubin,Total 1.3 mg/dl (0.2-1.0); Calcium 8.4 mg/dl (8.6-10.3); Creatinine Clr Calc Pharmacy 25.9 ml/min; Est GFR (African American) 26.4 ml/min; Est GFR (Non-African American) 22.8 ml/min; Magnesium 2.2 mg/dl (1.7-2.4); Phosphorus 2.9 mg/dl (2.5-4.9); Potassium 4.4 mmol/L (3.5-5.1); Total Protein 6.8 gm/dl (6.0-8.3)
--- NOTE | 2023-06-20 08:10 | Hospitalist Progress Note ---
Date of Service June 20, 2023 Assessment & Plan (1) Acute renal failure: Plan: Admit to the PCU on tele Multifactorial -- untreated BPH, HTN, DMII/alcohol use CTAP w/ chronic outlet obstruction Cr 6.47 on admission, elevated CK (improved on repeat/almost resolved day prior to dc IVF) Poe in place--> To continue per nephrology/urology outpt f/u (patient would like removed, can consider inpatient consult but did discuss would defer removal to prevent retention issues acutely) --> I discussed case w/ Dr Connor in house this weekend and recommended patient KEEP poe for now, voiding trial in office/management of BPH Nephrology on consult Had been on IVF w/ NaHCO3 Electrolytes improved and stable, no further acidosis, pH wnl on repeat Cr improved to 3.84, discontinued IVF Lisinopril/metformin/glimepride still on hold given SARI (would not resume until normalized) Cr further improved to 2.58 -- given trending down will discuss w/ patient/nephro about possible discharge today with close follow up and Urology for voiding trial Renal dose meds/avoid nephrotoxins Urine cx NO growth DVT proph: Heparin SQ PT/OT consults placed (2) Metabolic acidosis: Plan: VBG on admit w/ pH 7.26 with pCO2 36 and pO2 41. No anion gap, suspect due to acute renal failure -- nephrology consulted/bicarb IVF as above and resolved on repeat labs Dc IVF today, monitor labs on repeat (3) Diabetes mellitus: Plan: Glu 232 on admission with SARI Holding home metformin/glimepiride Had been holding off basal insulin on admission to prevent hypoglycemia as likely taking longer to clear with SARI BSGs stable, will adjust sliding scale insulin for now CR 50--> 45--> 40, CR 1;15 Low K/DM diet Monitor/adjustments as needed (4) Hypermagnesemia: Plan: elevation suspected 2nd to renal failure monitoring on telemetry -- no issues normalized on repeat (5) Hyperphosphatemia: Plan: repeat wnl (6) Dyslipidemia: Plan: Ck elevated, improving to 280 yesterday on continuous IVF can resume statin tomorrow/at discharge (7) Hypertension: Plan: Stable, BP 116/69 Holding lisinopril w/ acute renal failure -- would continue to hold until kidney function returns to baseline and BP has been WELL CONTROLLED off lisinopril while inpatient Monitor BP (8) Alcohol use: Plan: Previous reports of 1-2 30pks of beer weekly, now down to 2-3 beers 3-4x/week but did drink over holiday as well placed on folic acid and thiamine checked folic level, normal B12 low normal 255 -- IM replacement while inpatient, continue PO at discharge Continue daily thiamine for now AWSS risk protocol ordered No evidence for DTs at present Monitoring on telemetry (9) Murmur: Plan: ECHO obtained given murmur on exam w/ no prior ECHO --> mild aortic stenosis, trivial mild aortic insufficiency, mild mitral regurgitation. EF normal, no wma F/u PCP Plan continued inpatient stay PT/OT consulted repeat labs in AM --> if renal function continued improvement can consider dc w/ close monitoring of labs and urology f/u for voiding trial again, can consider reaching out to urology in AM (notified of need for f/u today with Dr Connor) if patient wanting to trial voiding prior to dc but advised against given significantly enlarged prostate Admission and Anticipated Discharge Date Admission Date: June 17, 2023 Results & Data Results & Data Vital Signs (Past 12 Hours) Vital Signs Temp Pulse Pulse Resp BP Pulse Ox O2 Del Method 06/20/23 07:39 36.9 C 59 L 18 128/77 95 Room Air 06/20/23 03:13 124/66 06/20/23 02:50 36.8 C 60 16 83/47 L 93 Room Air 06/19/23 23:41 53 L 06/19/23 23:00 36.9 C 60 16 106/62 Room Air Laboratory Results 06/20/23 06/20/23 06/20/23 Range/Units 07:36 05:31 05:31 WBC 5.90 (4.8-10.8) K/ul RBC 3.79 L (4.70-6.10) M/uL Hgb 11.9 L (14.0-18.0) g/dl Hct 34.1 L (42.0-52.0) % MCV 90.0 (80.0-100.0) fL MCH 31.4 (25.0-34.0) pg MCHC 34.9 (32.0-36.0) g/dL RDW Std Deviation 42.9 (36.4-46.3) fL RDW Coeff of Alen 13.0 (11.5-14.5) % Plt Count 145 (130-400) K/uL MPV 10.9 (9.4-12.4) fL Sodium 138 (136-145) mmol/L Potassium 4.4 (3.5-5.1) mmol/L Chloride 105 (98-107) mmol/L Carbon Dioxide 28 (21-32) mmol/L Anion Gap 5 (3-11) BUN 50 H D (6-23) mg/dl Creatinine 2.58 H D (0.6-1.4) mg/dl Est Cr Clr Drug Dosing 25.9 ml/min Est GFR ( Amer) 26.4 ml/min Est GFR (Non-Af Amer) 22.8 ml/min BUN/Creatinine Ratio 19.4 (10-20) Glucose 137 H (70-99(Fasting)) mg/dl POC Glucose 151 H (70-99) mg/dl Calcium 8.4 L (8.6-10.3) mg/dl Phosphorus 2.9 (2.5-4.9) mg/dl Magnesium 2.2 (1.7-2.4) mg/dl Total Bilirubin 1.3 H (0.2-1.0) mg/dl Direct Bilirubin 0.3 H (0-0.2) mg/dl AST 14 (13-39) U/L ALT 18 (7-52) U/L Alkaline Phosphatase 40 (34-104) U/L Total Creatine Kinase 92 (30-223) U/L Total Protein 6.8 (6.0-8.3) gm/dl Albumin 3.9 (3.4-5.0) gm/dl 06/19/23 06/19/23 06/19/23 Range/Units 20:24 16:41 11:32 WBC (4.8-10.8) K/ul RBC (4.70-6.10) M/uL Hgb (14.0-18.0) g/dl Hct (42.0-52.0) % MCV (80.0-100.0) fL MCH (25.0-34.0) pg MCHC (32.0-36.0) g/dL RDW Std Deviation (36.4-46.3) fL RDW Coeff of Alen (11.5-14.5) % Plt Count (130-400) K/uL MPV (9.4-12.4) fL Sodium (136-145) mmol/L Potassium (3.5-5.1) mmol/L Chloride (98-107) mmol/L Carbon Dioxide (21-32) mmol/L Anion Gap (3-11) BUN (6-23) mg/dl Creatinine (0.6-1.4) mg/dl Est Cr Clr Drug Dosing ml/min Est GFR ( Amer) ml/min Est GFR (Non-Af Amer) ml/min BUN/Creatinine Ratio (10-20) Glucose (70-99(Fasting)) mg/dl POC Glucose 191 H 174 H 192 H (70-99) mg/dl Calcium (8.6-10.3) mg/dl Phosphorus (2.5-4.9) mg/dl Magnesium (1.7-2.4) mg/dl Total Bilirubin (0.2-1.0) mg/dl Direct Bilirubin (0-0.2) mg/dl AST (13-39) U/L ALT (7-52) U/L Alkaline Phosphatase (34-104) U/L Total Creatine Kinase (30-223) U/L Total Protein (6.0-8.3) gm/dl Albumin (3.4-5.0) gm/dl 06/19/23 Range/Units 07:11 WBC (4.8-10.8) K/ul RBC (4.70-6.10) M/uL Hgb (14.0-18.0) g/dl Hct (42.0-52.0) % MCV (80.0-100.0) fL MCH (25.0-34.0) pg MCHC (32.0-36.0) g/dL RDW Std Deviation (36.4-46.3) fL RDW Coeff of Alen (11.5-14.5) % Plt Count (130-400) K/uL MPV (9.4-12.4) fL Sodium 139 (136-145) mmol/L Potassium 4.6 (3.5-5.1) mmol/L Chloride 104 (98-107) mmol/L Carbon Dioxide 30 (21-32) mmol/L Anion Gap 5 (3-11) BUN 70 H (6-23) mg/dl Creatinine 3.84 H D (0.6-1.4) mg/dl Est Cr Clr Drug Dosing 17.4 ml/min Est GFR ( Amer) 16.4 ml/min Est GFR (Non-Af Amer) 14.1 ml/min BUN/Creatinine Ratio 18.2 (10-20) Glucose 113 H (70-99(Fasting)) mg/dl POC Glucose (70-99) mg/dl Calcium 8.1 L (8.6-10.3) mg/dl Phosphorus 3.6 D (2.5-4.9) mg/dl Magnesium 2.3 (1.7-2.4) mg/dl Total Bilirubin (0.2-1.0) mg/dl Direct Bilirubin (0-0.2) mg/dl AST (13-39) U/L ALT (7-52) U/L Alkaline Phosphatase (34-104) U/L Total Creatine Kinase (30-223) U/L Total Protein (6.0-8.3) gm/dl Albumin 3.6 (3.4-5.0) gm/dl PG Care Time/CCT Total # of Minutes Spent Total Time Spent with Patient: Total time spent is greater than 50% in coordination of care (as documented) at patient's floor/unit and/or counseling patient: Coding Diagnoses Acute renal failure N17.9 Metabolic acidosis E87.20 Diabetes mellitus E11.9 Hypermagnesemia E83.41 Hyperphosphatemia E83.39 Dyslipidemia E78.5 Hypertension I10 Alcohol use Z78.9 Murmur R01.1
[2023-06-20] MEDS: THIAMINE HCL 100 MG TAB PO SCH (08:14)
[2023-06-20] MEDS: FOLIC ACID 1 MG TAB PO SCH (08:14)
[2023-06-20] MEDS: CYANOCOBALAMIN 1000 MCG/ML VIAL IM SCH (08:14)
[2023-06-20] MEDS: INSULIN ASPART PER UNIT CHARGE SC SCH (08:26)
--- NOTE | 2023-06-20 09:45 | Discharge Summary ---
Date of Service June 20, 2023 Admission HPI Per Admitting Provider Makayla is a 78 year old male with a PMH significant for DMII, HTN, Dyslipidemia, and stage 3 CKD (baseline cr of 1.3-1.4) who presented to the [facility] ED on 06/17 due to abnormal outpatient labs. He was noted to be bradycardic at 55 but otherwise stable. Labs were significant for a VBG pH of 7.26, pCO2 of 36, pO2 of 41, Cr of 6.47, BUN of 79, bicarb of 14, AG WNL, chloride of 110, phos of 5.7 glucose of 232, mag of 2.5, total bili of 1.2, and UA with cloudy appearance, 1+ protein, trace ketones, 3+ blood, and calcium oxalate crystals. CT of the abd/pelvis wo con shows Prostatomegaly with findings suggestive of chronic outlet obstruction but no renal calculi or hydronephrosis. Prior to admission the patient was given 1L NSS prior to admission. At the time of the exam the patient was sitting in bed in no acute distress with his sitting bedside. He states that he had been in his normal state of health when he went for his yearly physical exam on Tuesday. He had routine labs drawn which revealed new renal failure and he was advised to come to the ED. When asked, he states that he recently cut back on his alcohol consumption. He had been drinking approximately 1-2 30 packs of beer weekly. Over the past 2 weeks he has decreased his consumption to 2-3 beers, 3-4 days a week. He did drink every day over the holiday weekend. He denies consistent NSAID use and denies recent dysuria, hematuria, abd pain, and back pain. When asked, he states that he will have to wake up frequently overnight because he has to urinate. He does feel as though he retains urine after urinating. He denies recent fever, chills, chest pain, SOB, nausea, vomiting, diarrhea, melena, LE swelling, and recent trauma. If needed, he would want dialysis to stabilize him during this admission. He is a full code and would want his to make medical decisions for him if he cannot make them himself. Please refer to Dr. Marcos's attestation for any changes to the treatment plan Admission Exam Per Admitting Provider Physical Exam: General:In no acute distress, stated age, well-nourished, good hygiene HEENT:Normocephalic, atraumatic, no scleral icterus, pupils around round, symmetrical, and reactive to light, moist mucus membranes, trachea midline, no thyromegaly Chest/Pulm:No respiratory distress, symmetrical chest expansion, clear breath sounds throughout Cardiac:RRR, systolic murmur noted Abdomen:Negative for ascites and bruising, normoactive bowel sounds, soft, non-tender to palpation throughout Musculoskeletal:Symmetrical and without signs of acute trauma, upper and lower extremities with full ROM, no atrophy, spasticity, or flaccidity Extremities:Radial, dorsalis pedis, and posterior tibial pulses are intact and symmetrical, no edema noted in the BL LE's Skin:Warm, dry, no rashes , lesions, or scars noted Neuro:Alert and oriented to person, place, month, year, and president, no focal defects, no tremors noted Psych:No acute distress, calm and cooperative during the exam Principal Diagnosis Acute Renal Failure, Outlet Obstruction, BPH Discharge Exam General : WN/WD male in bed, in room, NAD HEENT: head normocephalic, atraumatic, mmm, trachea midline Resp: CTA, no w/c/r, on room air CV: Sinus rhythm/sinus jett on monitor this morning, +systolic murmur, no pitting edema/calf tenderness GI: +BS, soft/NT : poe draining clear yellow urine MSK/Neuro: no focal deficits/slurred speech, answering questions appropriately Psych: alert, oriented x 3, cooperative with exam Discharge Data Allergies Allergy/AdvReac Type Severity Reaction Status Date / Time No Known Allergies Allergy Verified 12/21/22 08:07 Consultations 06/17/23 14:02 ED Decision to Admit Stat 06/17/23 14:10 Consult Nephrology Routine Ordered Studies Abdomen/Pelvis CT 06/17/23 12:[address] WITHOUT CONTRAST CT DOSE: 1399.33 mGy.cm HISTORY: Acute renal failure acute renal failure TECHNIQUE: Multiaxial CT images of the abdomen and pelvis were performed without contrast. A dose lowering technique was utilized adhering to the principles of ALARA. COMPARISON STUDY: None. FINDINGS: Cardiomegaly with coronary arterial calcifications. Mild bibasilar groundglass densities favor atelectasis. No pneumatosis or pneumoperitoneum. Calcified granulomata throughout the spleen. Unremarkable pancreas, gallbladder and adrenal glands. Hepatic steatosis. Nonspecific bilateral perinephric stranding. No urolith or hydronephrosis. Prostatomegaly. Urine bladder wall thickening with partial distention. Atherosclerosis of the aorta without aneurysm. No lymphadenopathy. No bowel obstruction or bowel wall thickening. There is no ascites or mesenteric inflammation. Normal appendix. Unremarkable soft tissues. No acute fracture. IMPRESSION: 1. No renal calculi or hydronephrosis. 2. Prostatomegaly with findings suggestive of chronic outlet obstruction. 3. No bowel obstruction or bowel wall thickening. 4. Hepatic steatosis. ACT 112: Negative or not required by law. The above report was generated using voice recognition software. It may contain grammatical, syntax or spelling errors. Electronically signed by: Sam Martines M.D. 06/17/2023 1:40 PM Hospital Course (1) Acute renal failure: Admit to the PCU on tele Multifactorial -- untreated BPH, HTN, DMII/alcohol use CTAP w/ Prostatomegaly with findings suggestive of chronic outlet obstruction Cr 6.47 on admission with mildly elevated CK. Urine cx no growth Nephrology consulted Poe placed to relieve obstruction, UOP clear yellow urine in poe bag --> I discussed case w/ Dr Connor in house this weekend and recommended patient KEEP poe for now, voiding trial in office/management of BPH IVF w/ NaHCO for electrolyte derangements/acidosis, pH normalized on repeat and keeping up with PO intake and continued improvement in creatinine and IVF discontinued 06/19 and Cr down to 2.58 prior to discharge Patient had been feeling well past 2 days and wanting to go home but wanted to ensure moving in the right direction. Discussed w/ nephrology prior to discharge and patient to continue poe catheter as well as hold his home lisinopril, metformin, glimeperide at discharge to prevent worsened SARI/hypoglycemia until instructed to resume by PCP/nephro. BPs well controlled off such while inpatient and BSgs reasonable mundo given he declined any insulin while inpatient Close f/u with urology for voiding trial at discharge Repeat labs provided to be drawn this upcoming Tuesday and Tuesday, CC'd to Dr Partida. Further f/u /management per repeat labs. (2) Metabolic acidosis: VBG on admit w/ pH 7.26 with pCO2 36 and pO2 41. No anion gap, suspect due to acute renal failure -- nephrology consulted/bicarb IVF as above and resolved on repeat labs and IVF discontinued and labs remained stable/continued improvement in renal function (3) Diabetes mellitus: Held home medications on admission, had been refusing insulin and BSGs actually reasonable without Decision to continue to hold home metformin given renal function as well as glimeperide to prevent hypoglycemia and can resume once renal function normalizes (4) Hypermagnesemia: elevation suspected 2nd to renal failure, normalized on repeat with IVF/poe as above to relieve obstruction/BPH (5) Hyperphosphatemia: repeat wnl (6) Dyslipidemia: Ck elevated, IVF provided and statin held. CK normalized, statin resumed (7) Hypertension: Stable while inpatient off lisinopril to continued to hold such at discharge given elevated renal function --> timing to resume TBD based on repeat labs/follow up (8) Alcohol use: Previous reports of 1-2 30pks of beer weekly, now down to 2-3 beers 3-4x/week but did drink over holiday as well placed on folic acid and thiamine and checked folic level which was normal. B12 was low normal and IM provided while inpatient --> continued PO at discharge encouraged continued cutting back continued empiric thiamine while inpatient AWSS protocol ordered --> NO EVIDENCE FOR DTS DURING INPATIENT STAY (9) Murmur: ECHO obtained given murmur on exam w/ no prior ECHO --> mild aortic stenosis, trivial mild aortic insufficiency, mild mitral regurgitation. EF normal, no wma F/u PCP Plan discharged home with continued poe and to have urology f/u for voiding trial. CM arranged for home health per patient/ request given poe at dc. RN to provide instructions for care as well prior to dc Flomax continued at discharge lisinopril/metformin/glimepiride held as above, repeat labs for Tuesday and Tuesday provided and once renal function back to baseline primary care/nephrology can determine timing to resume these medications Total Time Total Time Spent Total Time Spent (In Minutes): 50 Discharge Plan Discharge Items Patient Disposition: Home - Self-Care Reason For Visit: RENAL FAILURE, HYPER-MAG, HYPER-PHOS Discharge Diagnosis: Acute Renal Failure Goals: You have been hospitalized for an acute medical problem. During your stay at [facility], we have made an effort to correct the problem that brought you to the hospital while keeping you as comfortable as possible. Medications were used to bring your condition under control and your discharge instructions will include directions for any medications you should take after leaving the hospital. Please make sure you see your Primary Care Provider as part of your follow up plan. Activity: As commented below Non-emergency contact: Primary Care Provider, [facility] and Urologist Call non-emergency contact if: you have any medication questions, your symptoms worsen, your pain is not controlled and you have a fever Follow-up/Referrals: Khalif Connor MD [Physician] - 06/28/23 11:00 am (Follow up scheduled 06/28/23 @ 11am) Mitzi Hernández DO [Primary Care Provider] - 07/04/23 9:20 am (Follow up schedued 07/04/23 @ 9:20) Reshma Partida MD [Physician] - 06/24/23 3:20 pm (Follow up scheduled on 06/24/23 @ 3:20) Diet: Carb Consistent or DM2 and Heart Healthy Ambulatory Orders: Basic Metabolic Panel (Routine) Timeframe: 20230627 Location: Determined by Patient Ordered By: Penny Adrian Basic Metabolic Panel (Routine) Timeframe: 20230622 Location: Determined by Patient Ordered By: Penny Adrian Addtl Attending Provider Instructions: You have been hospitalized for acute renal failure. This is likely a combination of medication effects with a large prostate and urine unable to pass freely. Nephrology was consulted and you had a poe catheter placed which is to be continued at discharge as discussed, and we are working on arranging outpatient follow up with Dr Connor or his partner for a voiding trial in follow up and they can start medications to help shrink your prostate to prevent issue in the future but in the meantime have been started on flomax 0.4mg once daily. Your renal function continues to improve and you will have repeat labs to be drawn on Tuesday and Tuesday to ensure continued improvement. I will have these results forwarded to Dr Partida for review and she will schedule follow up as needed based on repeat lab testing. You should continue to have your lisinopril and metformin and glimepiride on HOLD in the meantime while your renal function is returning to normal or instructed to resume by your primary care provider or nephrology. You should follow up with primary care in the next 7-10 days to monitor your progress after hospitalization. Please return to the ER with any pain, fever, issues with catheter or for any other symptoms concerning for you. It has been a pleasure being a part of the medical team providing for you while you have been in the hospital. Take care! Pending Studies at Discharge: No Stand-Alone Forms: My [facility], Smoking Cessation Medications and DC Order Prescriptions: New thiamine HCl (vitamin B1) 100 mg Tablet 100 mg PO QAM Qty: 30 0RF tamsulosin 0.4 mg Capsule 0.4 mg PO HS Qty: 30 0RF cyanocobalamin (vitamin B-12) 1,000 mcg capsule 1,000 mcg PO DAILY Qty: 30 0RF Continued (DME) lancets 31 gauge misc See Rx Instructions .Route Qty: 100 1RF Rx Instructions: As directed, check BS daily atorvastatin 10 mg tablet 10 mg PO HS Qty: 90 1RF (DME) Blood Glucose Test Strip See Rx Instructions .ROUTE .MEDSUPPLY Qty: 100 1RF Rx Instructions: As directed. Testing BS daily. Dx: E11.9 (DME) blood-glucose meter [Blood Glucose Monitoring] Kit See Rx Instructions .ROUTE .MEDSUPPLY Qty: 1 0RF Rx Instructions: As directed Testing BS daily. Dx: E11.9 Heartburn Antacid 160-105 mg Tablet,Chewable 2 tab PO BID Held lisinopril 40 mg tablet 40 mg PO DAILY Qty: 90 1RF Hold Instructions: Resume on 07/15/23. hold until instructed to resume by your doctor glimepiride 4 mg tablet 4 mg PO BID Qty: 180 1RF Hold Instructions: Resume on 07/15/23. hold until instructed to resume by your doctor metformin 500 mg tablet extended release 24 hr 1,000 mg PO BID Qty: 360 1RF Hold Instructions: Resume on 07/15/23. hold until instructed to resume by your doctor Discharge Orders: Discharge Order (Routine); Ordered 06/20/23 Ordered By: Penny Adrian Admission Data Admit Date/Time: 06/17/23 14:10 Attending Provider: Davi Elaine Admit Provider: Brad Marcos Primary Care Provider: Mitzi Hernández Other Providers: Brad Marcos ; Keron White ; Greg Kraft [facility] [place] Other Interventions: Discharge Summary Assessment (RN) Last Done: 06/20/23 10:44 Supervising Physician Co-Signing Physician Notes The patient was not seen by me. The chart was reviewed. Case discussed with MICHELLE Up. Agree with assessment and plan. Coding Level of Care Code 27796 INP/OBS DISCH >30 MIN Diagnoses Acute renal failure N17.9 Metabolic acidosis E87.20 Diabetes mellitus E11.9 Hypermagnesemia E83.41 Hyperphosphatemia E83.39 Dyslipidemia E78.5 Hypertension I10 Alcohol use Z78.9 Murmur R01.1
--- NOTE | 2023-06-20 11:01 | Nephrology Progress Note ---
Date of Service June 20, 2023 Assessment & Plan (1) Acute renal failure: (2) Chronic kidney disease, stage 3a: (3) Metabolic acidosis: (4) Hyperphosphatemia: (5) Hypertension: (6) Diabetes mellitus: (7) Bladder outlet obstruction: Plan 78 year old male with past medical history significant for stage IIIa CKD baseline creatinine 1.3-1.4 most likely secondary to microvascular disease with history of hypertension diabetes hypercholesterolemia. Recently he had outpatient labs done by his PCP showing creatinine of 3.4 on 06/15/2023, repeat lab yesterday showed creatinine of 6.5 and he was referred to ER for further evaluation. Urinalysis showed low-grade proteinuria and 3+ blood but no RBCs, no bacteria. CT abdomen pelvis without contrast was negative for hydronephrosis or any other structural abnormality but there was concern for prostatomegaly and chronic bladder outlet obstruction. Had a Jackson catheter placed with 400 cc of urine output. He reported noticing decreased urine output the day before admission. Labs this morning showed slight improvement in creatinine to 6.1, electrolytes improving. Blood pressure well controlled, volume status acceptable, overall otherwise feeling well. --Continue to monitor renal function with daily lab, expect renal function to continue to improve. Recommend to keep the Jackson catheter in and schedule urologic evaluation as an outpatient. -- Discontinue IV fluid, encourage p.o. intake -- Okay to be discharged with close outpatient lab monitoring. If patient gets discharged home today recommend lab on Tuesday and next week, expect SARI to be completely resolved, if needed will schedule out pt f/u. Will follow Admission and Anticipated Discharge Date Admission Date: June 17, 2023 [address]ive Mr. Andrews was seen and evaluated this morning with his at bedside. Overall he feels well except mild discomfort with the Jackson catheter. Blood pressure well controlled. Urine output decent. Renal function continues to improve rapidly creatinine down to 2.5 from peak of 6.1,electrolyte reasonable. Review of Systems Review of Systems: Detailed review of system was otherwise unremarkable except mentioned above. Physical Exam Constitutional: WD/WN, vitals as above no acute distress Eyes: + anicteric sclerae ENMT: Ears: no hearing impairment Neck: normal visual inspection Respiratory: Auscultation: lungs clear to auscultation bilaterally Cardiovascular: Rate/Rhythm: regular rate and regular rhythm Extremities: no edema Skin: no rashes, warm and dry Neurologic: no focal motor deficits Psychiatric: Orientation: alert and oriented x 3 Results & Data Vital Signs (Past 12 Hours) Vital Signs Temp Pulse Pulse Pulse Resp BP Pulse Ox 06/20/23 10:44 36.8 C 53 L 61 18 133/76 97 06/20/23 10:39 36.8 C 61 18 133/76 97 06/20/23 07:39 36.9 C 59 L 18 128/77 95 06/20/23 03:13 124/66 06/20/23 02:50 36.8 C 60 16 83/47 L 93 06/19/23 23:41 53 L 06/19/23 23:00 36.9 C 60 16 106/62 O2 Del Method 06/20/23 10:44 06/20/23 10:39 Room Air 06/20/23 07:39 Room Air 06/20/23 03:13 06/20/23 02:50 Room Air 06/19/23 23:41 06/19/23 23:00 Room Air PG Care Time/CCT Total # of Minutes Spent Total Time Spent with Patient: Total time spent is greater than 50% in coordination of care (as documented) at patient's floor/unit and/or counseling patient: Coding Level of Care Code 47315 SUB INP/OBS CARE 2/35MIN Diagnoses Acute renal failure N17.9 Chronic kidney disease, stage 3a N18.31 Metabolic acidosis E87.20 Hyperphosphatemia E83.39 Hypertension I10 Diabetes mellitus E11.9 Bladder outlet obstruction N32.0
== END 2023-06-20 11:30 | disposition home health service (06) | DRG 683 ==
LOC: ED 10:09 → 2S 14:10 → SUATTDRO 14:10 → 2S 21:01